=== PATIENT | female | born 1940 | race Caucasian/White ===

== ENCOUNTER 2016-06-15 15:59 | Inpatient (IN) | payer OTHER, MEDICARE ==
[2016-06-15] MEDS ORDERED: Sodium Chloride 0.9% 1,000 ML PRIMARY IV ONE (16:17)
[2016-06-15] MEDS ORDERED: NORMAL SALINE 10 ML SYRINGE FLUSH IVP PRN ×2 (16:17→17:51)
--- NOTE | 2016-06-15 16:29 | EKG ---
[address] [address] Measurements Intervals [place] Rate: 90 P: 82 MN: 130 QRS: 74 QRSD: 79 T: 87 QT: 336 QTc: 384 Interpretive Statements SINUS RHYTHM MINIMAL ST DEPRESSION Compared to ECG 12/31/2015 13:21:19 ST (T wave) deviation now present Sinus tachycardia no longer present Myocardial infarct finding no longer present Electronically Signed On 06-15-16 17:12:50 MDT by Patrick Dao [email or web address]
--- NOTE | 2016-06-15 17:29 | PDOC ---
General Adult HPI - General Chief Complaint: General Medical Stated Complaint: SENT FOR ADMIT EVAL/ LOW HEMAGLOBIN Date Seen by Provider: 06/15/16 Time Seen by Provider: 16:05 Source: POSITIVE: Patient Exam Limitations: POSITIVE: No limitations Nurse's Notes Reviewed & Considered: Yes - History of Present Illness Initial Comment: The patient is a 76-year-old female who is evaluated with low hemoglobin. She was sent to the hospital from Dr. Wharton's office. She states that she has a history of hemorrhoids that bleed intermittently. She is currently on Plavix secondary to stent placement in December of last year. She states that she was on antibiotics recently and developed some constipation. She states that on Wednesday of last week she developed some rectal bleeding. She states that she was having bright red blood in the toilet with BMs as well as some blood dripping in the toilet. She was also passing some fairly large clots at times. She states that she continued to bleed over the weekend. Today the bleeding seems to have stopped however she was feeling very short of breath with activity and lightheaded. She subsequently was evaluated at Dr. Wharton's office. He had ordered blood work as well as a chest x-ray. Her hemoglobin was found to be 7 and she was advised to come here for evaluation. She denies any nausea or vomiting. She does have a large abdominal wall hernia which she states causes pain fairly chronically. She was having increased pain associated with the constipation and this seems to be improved now that her bowels have been moving better. She does report increased shortness of breath today especially with activity. She also has had some chest pain off and on. She denies any current pain. She has not had fevers or chills, urinary symptoms or any other associated complaints. She does not remember ever having a blood transfusion previously. She did at one point see Dr. Loaiza for her hemorrhoids after a previous episode of rectal bleeding. Have you received a tetanus shot in the past 10 years?: Unknown - Patient Home Medications Home Medications: Home Medications Albuterol Neb Soln 0.021% 1 unit INH Q4H 02/04/12 Amlodipine Besylate 1 tab PO DAILY tab 01/15/15 Budesonide/Formoterol Fumarate [Symbicort] 2 puff INH BID inh 01/15/15 Levothyroxine Sodium 1 tab PO DAILY tab 01/15/15 Aspirin 81 mg PO DAILY tab 01/10/16 Atorvastatin Calcium 1 tab PO DAILY tab 01/10/16 Clopidogrel Bisulfate [Plavix] 1 tab PO DAILY tab 01/10/16 Sennosides [Senna] 8.6 mg PO QPM PRN tab 01/10/16 Metoprolol Succinate 1 tab PO QD tab 02/06/16 Ipratropium Brom Neb Soln [Atrovent Neb Soln] 0.2 mg INH Q6HR 06/15/16 - Patient Allergies Allergies/Adverse Reactions: Allergies Allergy/AdvReac Type Severity Reaction Status Date / Time Penicillins Allergy Severe SWELLING Verified 06/15/16 16:10 PAIN PILLS AdvReac Severe DYSPHORIA Uncoded 06/15/16 16:10 Past Medical History - heen HEENT History: Denies History Cardiovascular History: Hypertension, Previous SC Respiratory History: Asthma, COPD Gastrointestinal History: Denies History Genitourinary History: Denies History Endocrine History: Hypothyroidism Additional Endocrine History: S/P RADIATION TO THYROID Musculoskeletal History: Joint Pain Prosthesis or Implant: No Additional Musculoskeletal History: RIGHT HIP PAIN Neurological History: Denies History Blood Disorders: Denies History Psychiatric History: Denies History History of Sexually Transmitted Diseases: No Obstetrical History: Denies History Cancer History: Breast In Past Year Been Physically Harmed or Verbally Threatened: No History of MDRO: No History of Other Communicable Diseases: No Tobacco Use: Former Smoker Alcohol Use: Rarely Substance Use Type: None Previous Surgical History: Yes Type / Date of Surgery: MASTECTOMY, GALLBLADDER, ABDOMINAL HERNIA REPAIR X 3 Anesthesia Reactions: No Malignant Hyperthermia: No Significant Family History: No pertinent family hx Past Medical History Reviewed: Reviewed - No Changes ROS - Limitations ROS Limitations: No Limitations Constitution: DENIES: Chills, Fever Cardiovascular: REPORTS: Chest Pain (Off-and-on today). DENIES: Edema Respiratory: REPORTS: Shortness Of Breath (With activity especially today) Neurological: REPORTS: Denies Neuro Symptoms Gastrointestinal: REPORTS: Abdominal Pain (Some chronic lower abdominal pain and large abdominal wall hernia), Bloody Stools. DENIES: Nausea, Vomitting, Black Stools Musculoskeletal: REPORTS: Denies MS Symptoms Genitourinary: REPORTS: Denies Symptoms Eyes: REPORTS: Denies Symptoms ENT: REPORTS: Denies Symptoms Skin: DENIES: Rash General Adult Exam - General Appearance General Appearance: POSITIVE: Alert, Cooperative, No Acute Distress - HEENT HEENT: POSITIVE: Head Inspection Nml, Eyes Inspection Nml, Ears Inspection Nml, Nose Inspection Nml, Pharynx Inspect. Nml - Neck Neck: POSITIVE: Normal Inspection. NEGATIVE: Lymphadenopathy - Respiratory Respiratory: POSITIVE: No Respiratory Distress, Breath Sounds Normal - Cardiovascular Cardiovascular: POSITIVE: Regular Rate & Rhythm, No Murmur Peripheral Pulses: Dorsalis-pedis (R): 2+, Dorsalis-pedis (L): 2+ - Abdomen Abdomen: Soft: (All Quadrants), No Guarding: (All Quadrants), No Rebound: (All Quadrants) Additional Abdominal Details: She does have a very large abdominal wall hernia, some mild generalized abdominal tenderness - Rectal Rectal: POSITIVE: Other (Rectal exam reveals multiple external hemorrhoids, there is one hemorrhoid that may be an internal hemorrhoid that is protruding which appears to be excoriated, there is no active bleeding, the stool is brown however is heme positive) - Skin Skin: POSITIVE: Normal Color, No Rash - Extremities Extremity: Normal ROM: (All Extremities), Normal Inspection: (All Extremities) - Neurological / Psychological Neurological: POSITIVE: Other (No focal neurologic deficit) General Adult Progress - Results Reviewed by me Xrays/CTs/US Reviewed by me: Yes Radiology Findings: Chest x-ray PA and lateral is reviewed from earlier today, normal heart size and lung guerrero Lab Results Reviewed: Yes Lab Results:: Laboratory Results 06/15/16 Range/Units 16:39 PT 10.3 (9.7-11.4) secs INR 1.00 (0.00-5.90) N/A APTT 23.4 (22.6-31.3) SECS Troponin I < 0.012 (< 0.040) ng/mL EKG Interpreted/Reviewed By Me:: Yes EKG Interpretation:: POSITIVE: Normal Sinus Rhythm, Normal Rate, Normal Intervals, Normal QRS, Normal ST/T, Other (No acute ST segment or T-wave changes ) - Patient's Progress MDM / ED Course: Lab work from earlier this morning was reviewed. Her hemoglobin is 7 and she does not have any history of anemia when old labs are reviewed. Because of her complaints of intermittent chest pain and EKG was done and found to be normal. Her troponin is also normal. She was typed and crossed for 2 units of packed red blood cells as she is symptomatic with her current anemia. I did discuss the patient with Dr. Roman who is on-call for general surgery as well as Dr. Wright. The current plan is for admission and blood transfusion. These findings and recommendations were discussed with the patient and she is in agreement with this plan. - Consult Counseled: POSITIVE: Patient, RE: Lab Results, RE: DX, RE: Need for F/U Patient Care Time - Estimated PCT Patient Care Time (In Minutes): 25 Vital Signs - Recent Vital Signs Vital Signs: Vital Signs (Last 8 hours) Temp Pulse Resp BP Pulse Ox 06/15/16 16:00 98.8 F 115 H 22 134/76 95 - VS Reviewed Vital Signs Reviewed: Yes Discharge Clinical Impression: Lower gastrointestinal hemorrhage, Hemorrhoids, Secondary anemia Discharge Disposition: Admit to Inpatient Condition: Fair Date Decision to Admit to Inpatient: 06/15/16 Time Decision to Admit to Inpatient: 17:00
[2016-06-15] MEDS ORDERED: predniSONE Tab 20 MG TAB PO ONE (17:51)
[2016-06-15] MEDS ORDERED: ACETAMINOPHEN 325 MG TABLET PO ONE (17:51)
[2016-06-15] MEDS ORDERED: Sodium Chloride 0.9% 500 ML PRIMARY IV ONE (17:51)
[2016-06-15] MEDS ORDERED: ONDANSETRON 4 MG/2 ML VIAL IVP PRN (17:51)
[2016-06-15] MEDS ORDERED: diphenhydrAMINE 25 MG CAPSULE PO ONE (17:51)
[2016-06-15] MEDS ORDERED: LIDOCAINE W/ SODIUM BICARB 0.5 ML SYR SUBD PRN (17:51)
--- NOTE | 2016-06-15 18:43 | PDOC ---
History and Physical - History of Present Illness Date and Time of Service: 06/15/2016, 1839 Chief Complaint: Shortness breath History of Present Illness: This is a very pleasant 76-year-old female with assorted history of coronary artery disease with stent placed December 2015, hypothyroidism, and tremor, hemorrhoids, and problems with a graft that was infected in the past with an abdominal surgery leading to abdominal wall hernia that is complex, bladder cancer treated with cystoscopy and scraping, and history of breast cancer with mastectomy in the past. She comes in today stating that she developed shortness breath today and states that her story really starts back to when she had a recent bladder scope in the office to monitor for bladder cancer. She was placed on an antibiotic which generally causes her constipation. After developing constipation she started having bright red blood clots pass from the rectum and attributed it to an internal hemorrhoid. She states that she had a rectal exam in the emergency room was told that she had an internal hemorrhoid. She apparently has seen Dr. Loaiza for this in the past but at the time she was on Plavix having had a recent stent placed in December 2015 and was told that she should delay any colonoscopy or EGD. The patient was seen by her primary care provider, Dr. Mcgarry, today with these complaints, and despite trying inhalers the shortness breath persisted. Blood counts were done and the patient was presyncopal as well. Blood counts revealed a hemoglobin of 7. She had some chest discomfort that was relieved with oxygen therapy. She states she is normally on oxygen at night but does not use it during the day. The patient could not tell if her shortness of breath or chest tightness were from her COPD or her heart, but again symptoms were relieved with oxygen today. Troponin was negative. The patient has never had endoscopy done before. She is not on a proton pump inhibitor. Past Medical History Medical History: 1. Coronary artery disease status post stent in December 2015. 2. Hypertension. 3. Hypothyroidism, post-iodine therapy for an overactive thyroid at the time. 4. Breast cancer status post mastectomy. 5. 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 6. Head tremor. 7. Internal hemorrhoids. 8. Hypercholesteremia Surgical History: 1. Stent in December 2015. 2. Appendectomy and cholecystectomy. 3. Hernia operation and then subsequently the patient developed a mesh infection and now has had 3-4 surgeries, with a large abdominal wall surgical hernia. 4. Left mastectomy due to breast cancer. 5. Transurethral resection of latter cancer, probably transitional cell although I don't have any pathology reports of that. Pertinent Family History: Significant for COPD. Past Social History: History of smoking but no longer does. Has 4 biologic sons and 2 stepchildren, and one of her sons had a traumatic brain injury and lives with her. She is . Retired. Rarely drinks alcohol Tobacco Use: Former Smoker Substance Use Type: None Alcohol Use: Rarely Medication / Allergies Home Medications: Home Medications Medication Instructions Recorded Confirmed Type Albuterol Neb Soln 0.021% 1 unit INH Q4H 02/04/12 12/31/15 History Amlodipine Besylate 1 tab PO DAILY tab 01/15/15 12/31/15 History Budesonide/Formoterol Fumarate 2 puff INH BID inh 01/15/15 12/31/15 History [Symbicort] Levothyroxine Sodium 1 tab PO DAILY tab 01/15/15 12/31/15 History Aspirin 81 mg PO DAILY tab 01/10/16 History Atorvastatin Calcium 1 tab PO DAILY tab 01/10/16 History Clopidogrel Bisulfate [Plavix] 1 tab PO DAILY tab 01/10/16 History Sennosides [Senna] 8.6 mg PO QPM PRN tab 01/10/16 History Metoprolol Succinate 1 tab PO QD tab 02/06/16 History Ipratropium Brom Neb Soln 0.2 mg INH Q6HR 06/15/16 06/15/16 History [Atrovent Neb Soln] Allergies/Adverse Reactions: Allergies Allergy/AdvReac Type Severity Reaction Status Date / Time Penicillins Allergy Severe SWELLING Verified 06/15/16 16:10 PAIN PILLS AdvReac Severe DYSPHORIA Uncoded 06/15/16 16:10 clorox AdvReac SWELLING Uncoded 06/15/16 18:37 Review of Systems - Review of Systems All Systems: Reviewed & No Additional Complaints Except as Stated (I did a 12 point review of systems and it was as per the history of present illness with a noted exceptions below.) - Gastrointestinal Gastrointestinal / Abdominal: REPORTS: Constipation (With antibiotics), Abdominal Pain (Gets cramping or stretching abdominal pains and bad gas pain at times.), See HPI - Gynecological Gynecological: REPORTS: Other (Had tubal ligation) : 4 Para: 4 - Musculoskeletal Musculoskeletal: REPORTS: Joint Pain - Shoulders (Left shoulder, chronic.) Exam - Vitals Vital Signs: Vital Signs Temperature 98.2 F Temperature Source Temporal Artery Scan Pulse Rate 83 Respiratory Rate 22 Blood Pressure 117/73 Pulse Ox 95 Height 5 ft Weight 126 lb - General General Appearance: POSITIVE: No Acute Distress, Cooperative - Head Head Exam: POSITIVE: Normal Inspection, Normocephalic, Atraumatic - Eye Eye Exam: POSITIVE: No Scleral Icterus - ENT ENT Exam: POSITIVE: Mucous Membranes Moist - Neck Neck Exam: POSITIVE: Normal Inspection, No Tenderness, No Thyromegaly - Respiratory Respiratory Exam: POSITIVE: Clear to Auscultation - Bilaterally, Breathing Non Labored, Normal to Percussion and Palpation - Cardiovascular Cardiovascular Exam: POSITIVE: RRR, No Murmur, No Clicks, No Gallops, No Rubs, No JVD - GI/Abdominal GI/Abdominal Exam: POSITIVE: Normal Bowel Sounds, Non Tender, Non Distended, Soft - Rectal Rectal Exam: POSITIVE: Deferred (Was done in the emergency room. She was told she had an internal hemorrhoid.) - External Exam: POSITIVE: Deferred Exam: POSITIVE: Deferred - Extremities Extremities Exam: POSITIVE: No Clubbing Present, No Edema Present, No Cyanosis Present - Back Back Exam: POSITIVE: Normal Inspection, No CVA Tenderness - Neurological Neurological Exam: POSITIVE: Alert, Oriented x 3, No Facial Droop, Speech Intact / Clear, Moves All Extremities Equally - Psychiatric Psychiatric Exam: POSITIVE: Normal Affect, Normal Mood - Integumentary Integumentary Exam: POSITIVE: Normal Color, Warm, Dry, Intact Results - Labs Labs - Last 24 Hours: Hemoglobin was noted to be 7, I did review the labs from outpatient side. Laboratory Results 06/15/16 Range/Units 16:39 PT 10.3 (9.7-11.4) secs INR 1.00 (0.00-5.90) N/A APTT 23.4 (22.6-31.3) SECS Troponin I < 0.012 (< 0.040) ng/mL NT-Pro-B Natriuret Pep 251 H (0-125) PG/ML Electrolytes were normal. Normal creatinine. - EKG Data -: EKG Interpreted by Me Rate: Normal EKG Shows Normal: Sinus Rhythm - Imaging Status: Image Reviewed by Me (Chest x-ray noted and my view of the images showed COPD but no infiltrates or pneumonia.) Assessment and Plan - Patient Problems (1) GI bleed Current Visit: Yes Status: Acute Qualifiers: GI bleed type/associated pathology: anorectal hemorrhage Qualified Description: Gastrointestinal hemorrhage associated with anorectal source Qualifier Code(s): (K62.5) Hemorrhage of anus and rectum (2) Coronary artery disease Current Visit: Yes Status: Acute Qualifiers: Coronary Disease-Associated Artery/Lesion type: [place] artery [place] vs. transplanted heart: [place] heart Associated angina: without angina Qualified Description: Coronary artery disease involving [place] coronary artery of [place] heart without angina pectoris Qualifier Code(s): (I25.10) Atherosclerotic heart disease of [place] coronary artery without angina pectoris (3) COPD (chronic obstructive pulmonary disease) Current Visit: No Status: Acute Qualifiers: COPD type: emphysema Emphysema type: panlobular Qualified Description: Panlobular emphysema Qualifier Code(s): (J43.1) Panlobular emphysema (4) Hypertension Current Visit: Yes Status: Acute Qualifiers: Hypertension type: essential hypertension Qualified Description: Essential hypertension Qualifier Code(s): (I10) Essential (primary) hypertension (5) Hypercholesterolemia Current Visit: Yes Status: Acute (6) Hypothyroidism Current Visit: Yes Status: Acute Qualifiers: Hypothyroidism type: due to medication Qualified Description: Hypothyroidism due to medication Qualifier Code(s): (E03.2) 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 Get a GI consult. Probably the patient needs a sigmoidoscopy or colonoscopy, and potential planning to look at what we can do for these hemorrhoids. Medications for constipation. May benefit from an EGD, and I'll run Protonix as a drip overnight, although I doubt based on the history that this is ulcer is in the differential. Hold Plavix and aspirin for now. The patient's risk of in-stent restenosis is about 1% or less at this point given the length of therapy she's had on her Plavix. She has significant heartburn on her review of systems and she may benefit from a proton pump inhibitor. Although there is potential for interference, this patient has been symptomatically miserable since the stent was placed in terms of her heartburn, reflux disease, and sometimes feels like things actually get stuck in her neck which could indicate stricture or dysphagia. Patient is full code, discussed with her. Blood and packed red blood cell transfusions, I've written for 3 units total. I discussed the above plan with the patient and she agreed. Nothing by mouth postmidnight.
[2016-06-15] MEDS ORDERED: ALBUTEROL SULFATE 0.63 MG/3 ML NEB SCH (19:00)
[2016-06-15] MEDS ORDERED: Sodium Chloride 0.9% 1,000 ML IV ONE (19:11)
[2016-06-15] MEDS ORDERED: traMADol 50 MG TABLET PO PRN (19:12)
[2016-06-15] MEDS ORDERED: IPRATROPIUM BROMIDE 0.5 mg/2.5 ML NEB SCH (19:15)
[2016-06-15] MEDS: Sodium Chloride 0.9% 1,000 ML PRIMARY IV SCH (19:17)
[2016-06-15] MEDS ORDERED: PANTOPRAZOLE IV 40 MG VIAL ONE (19:33)
[2016-06-15] MEDS: FORMOTEROL INH SCH (20:58)
[2016-06-15] MEDS: BUDESONIDE INH SCH (20:58)
[2016-06-15] MEDS: IPRATROPIUM/ALBUTEROL SULFATE 3 ML NEB NEB SCH (20:58)
[2016-06-15] MEDS ORDERED: ATORVASTATIN 40 MG TABLET PO SCH (21:00)
[2016-06-15] MEDS: DOCUSATE 100 MG CAPSULE PO SCH (21:10)
--- NOTE | 2016-06-15 23:04 | DI ---
HISTORY: GI bleed. COMPARISON: None. TECHNIQUE: An IV contrast enhanced CT examination of the abdomen and pelvis was performed with image s presented in the axial, coronal and sagittal plane. FINDINGS: LUNG BASES: There is a true lung nodule versus nodular scarring in the lingula which is partially im aged. INFERIOR MEDIASTINUM: Unremarkable. ABDOMEN: The patient is status post cholecystectomy. The liver, pancreas, spleen and kidneys are wit hin normal limits. There is no ureterolithiasis or hydronephrosis. 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 There is no retroperitoneal lymphade nopathy. Atherosclerotic disease is seen within the abdominal vasculature. There is a very large midline anterior lower abdominal wall hernia containing a long segment of small bowel and transverse colon. There are no dilated loops of small bowel proximal to this region sugges t obstruction. The hernia measures proximal 19.0 x 6.9 x 15.9 cm. There is diverticulosis of the colo n without findings to suggest diverticulitis. PELVIS: Within normal limits for age. MUSCULOSKELETAL/SOFT TISSUE: Again, there is a large anterior abdominal hernia containing a long seg ment of small and large bowel. IMPRESSION: 1. Diverticulosis of the colon without findings to suggest diverticulitis. 2. Large anterior abdominal wall hernia containing a long segment of small bowel and transverse colon. 3. There is nodular scarring versus a true lung nodule within the lingula. Comparison to prior examin ations is recommended versus follow-up chest CT on a non-emergent basis. NOTIFICATION: The above findings were phoned to Mireille Rdz in the ER Department on 06/16/2016 at 1: 09am EST.
[2016-06-15] MEDS ORDERED: cefTRIAXone Inj 2 GM in Sodium Chloride 0.9% 100 ML IV SCH (23:30)
[2016-06-15] MEDS ORDERED: metroNIDAZOLE 500mg (Premix) 500 MG in Premix 1 BAG IV SCH (23:30)
[2016-06-16] MEDS: IPRATROPIUM/ALBUTEROL SULFATE 3 ML NEB NEB SCH ×4 (00:06→19:09)
[2016-06-16] MEDS ORDERED: IPRATROPIUM/ALBUTEROL SULFATE 3 ML NEB NEB SCH (01:00)
[2016-06-16] MEDS: Sodium Chloride 0.9% 1,000 ML PRIMARY IV SCH ×2 (03:40→08:48)
[2016-06-16] MEDS ORDERED: Sodium Chloride 0.9% 1,000 ML IV ONE ×2 (04:10→05:37)
[2016-06-16 04:40] LABS: MEAN CORPUSCULAR HEMOGLOBIN 19.5 PG (27-31); MEAN CORPUSCULAR HGB CONC 30.3 g/dL (33-37); MEAN CORPUSCULAR VOLUME 64.5 FL (81-99); MEAN PLATELET VOLUME 8.8 FL (7.4-12.2); RED BLOOD COUNT 3.07 10^6/uL (4.20-5.40)
[2016-06-16 04:42] LABS: HEMATOCRIT 19.8 % (37.0-47.0)
[2016-06-16 05:27] LABS: BUN/CREATININE RATIO 15.71 (6-20)
[2016-06-16] MEDS ORDERED: LEVOTHYROXINE 100 MCG TABLET PO SCH (06:30)
[2016-06-16] MEDS: FORMOTEROL INH SCH (06:51)
[2016-06-16] MEDS: BUDESONIDE INH SCH ×2 (06:51→19:12)
[2016-06-16] MEDS ORDERED: Sodium Chloride 0.9% 1,000 ML PRIMARY IV ONE (07:43)
--- NOTE | 2016-06-16 08:52 | CONSULT ---
Consult Note - Consult Consult Date: 06/16/16 Reason for Consult: PreOp Consulation : General Surgery Requesting Physician: Dr. Olea Primary Care Provider: GINA [place]PELAND - History of Present Illness History of Present Illness: This is a 76-year-old female who presents with a gastrointestinal hemorrhage. She states that she had a bladder infection that was placed on antibiotics which led her to get constipated. She's been passing blood for 2-3 days. She would see her primary care doctor because of shortness of breath and apparently hemoglobin was 7. Therefore she was sent to the emergency department and got admitted to the hospital. Unfortunately she has 4 different type of antibodies therefore is taken a while to find appropriate blood. Patient currently is slightly tachycardic at 108, But her blood pressure remained stable. Patient December had a myocardial infarction which led to have a stent placed. Patient currently is taking Plavix. Patient also had bladder cancer and had a bladder procedure to have that removed. Patient still be she had one bloody bowel movement today Review of Systems - Review of Systems -: Patient's tells me that she just can't get comfortable. She's having some shoulder discomfort which sounds like it is not unusual for her. Patient states that she gets abdominal pain she leans over because of her incisional hernia. Past Medical History Medical History: 1. Coronary artery disease status post stent in December 2015. 2. Hypertension. 3. Hypothyroidism, post-iodine therapy for an overactive thyroid at the time. 4. Breast cancer status post mastectomy. 5. 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 6. Head tremor. 7. Internal hemorrhoids. 8. Hypercholesteremia Surgical History: 1. Stent in December 2015. 2. Appendectomy and cholecystectomy. 3. Hernia operation and then subsequently the patient developed a mesh infection and now has had 3-4 surgeries, with a large abdominal wall surgical hernia. 4. Left mastectomy due to breast cancer. 5. Transurethral resection of latter cancer, probably transitional cell although I don't have any pathology reports of that. Pertinent Family History: Significant for COPD. Past Social History: History of smoking but no longer does. Has 4 biologic sons and 2 stepchildren, and one of her sons had a traumatic brain injury and lives with her. She is . Retired. Rarely drinks alcohol Tobacco Use: Former Smoker Substance Use Type: None Alcohol Use: Rarely Medication / Allergies Home Medications: Home Medications Medication Instructions Recorded Confirmed Type Albuterol Neb Soln 0.021% 1 unit INH Q4H 02/04/12 06/15/16 History Amlodipine Besylate 1 tab PO DAILY tab 01/15/15 06/15/16 History Budesonide/Formoterol Fumarate 2 puff INH BID inh 01/15/15 06/15/16 History [Symbicort] Levothyroxine Sodium 1 tab PO DAILY tab 01/15/15 06/15/16 History Aspirin 81 mg PO DAILY tab 01/10/16 06/15/16 History Atorvastatin Calcium 1 tab PO DAILY tab 01/10/16 06/15/16 History Clopidogrel Bisulfate [Plavix] 1 tab PO DAILY tab 01/10/16 06/15/16 History Metoprolol Succinate 1 tab PO QD tab 02/06/16 06/15/16 History Ipratropium Brom Neb Soln 0.2 mg INH Q6HR 06/15/16 06/15/16 History [Atrovent Neb Soln] Allergies/Adverse Reactions: Allergies Allergy/AdvReac Type Severity Reaction Status Date / Time Penicillins Allergy Severe SWELLING Verified 06/15/16 16:10 PAIN PILLS AdvReac Severe DYSPHORIA Uncoded 06/15/16 16:10 clorox AdvReac SWELLING Uncoded 06/15/16 18:37 Exam - Vitals Vital Signs: Vital Signs Temperature 97.5 F Temperature Source Temporal Artery Scan Pulse Rate [Telemetry] 105 Pulse Rate [Apical] 90 Pulse Rate [Pulse Oximeter 80 Right] Pulse Rate 92 Respiratory Rate 25 Blood Pressure [Right Calf] 149/85 Blood Pressure [Right Arm] 96/46 Blood Pressure 117/73 Pulse Ox 99 Oxygen Flow Rate 2 Oxygen Delivery Method Nasal Cannula Height 5 ft Weight 58.786 kg - General General Appearance: POSITIVE: No Acute Distress, Cooperative - Eye Eye Exam: POSITIVE: PERRL, EOMI - GI/Abdominal GI/Abdominal Exam: POSITIVE: Non Tender, Non Distended, Soft Additional GI/Abdominal Exam Details: Incisional hernia Results - Labs CBC and BMP: 06/16/16 04:07 06/16/16 04:07 Labs - Last 24 Hours: Laboratory Results 06/16/16 Range/Units 04:07 WBC 9.17 (4.8-10.8) 10^3/uL RBC 3.07 L (4.20-5.40) 10^6/uL Hgb 6.0 L* (12.0-16.0) g/dL Hct 19.8 L* (37.0-47.0) % MCV 64.5 L (81-99) FL MCH 19.5 L (27-31) PG MCHC 30.3 L (33-37) g/dL RDW Std Deviation 42.4 (39-50) fL RDW Coeff of Lee 18.7 H (11.5-14.5) % Plt Count 370 H (140-350) 10*3/uL MPV 8.8 (7.4-12.2) FL Sodium 135 (135-145) meq/L Potassium 4.5 (3.8-5.2) meq/L Chloride 101 (98-112) meq/L Carbon Dioxide 20 L (23-33) meq/L Anion Gap 14 (5-20) BUN 11 (7-22) mg/dL Creatinine 0.7 (0.50-1.20) mg/dL Estimated GFR (>60 ml/min/1.73m(2)) BUN/Creatinine Ratio 15.71 (6-20) Glucose 117 H (78-110) mg/dL Calculated Osmolality 279.0 (267-292) mOsm/kg Calcium 9.0 (8.7-10.7) mg/dL Assessment and Plan - Patient Problems (1) GI bleed Current Visit: Yes Status: Acute Qualifiers: GI bleed type/associated pathology: anorectal hemorrhage Qualified Description: Gastrointestinal hemorrhage associated with anorectal source Qualifier Code(s): (K62.5) Hemorrhage of anus and rectum - Assessment / Plan Additional Assessment/Plan Details: Patient is acutely gas intestinal hemorrhage. Need to wait for the blood transfusion. Patient does need endoscopy to find the source of blood. Given the patient's age and situation most likely this is diverticular bleed also high possibility AV malformation. I doubt that the patient's hemorrhoids are actually causing her to be anemic. I discussed with the patient about doing a flexible sigmoidoscopy to look at the sigmoid colon and descending colon. Patient this point is refusing to have the endoscopy until after the blood transfusion.
[2016-06-16] MEDS ORDERED: Pantoprazole Inj 40 MG in Normal Saline Flush 10 ML IVP SCH (09:00)
[2016-06-16] MEDS ORDERED: SERTRALINE HCL PO SCH (09:00)
[2016-06-16] MEDS ORDERED: ONDANSETRON 4 MG/2 ML VIAL IVP PRN (09:39)
[2016-06-16] MEDS ORDERED: Sodium Chloride 0.9% 500 ML PRIMARY IV ONE ×3 (09:39→12:00)
[2016-06-16] MEDS ORDERED: NORMAL SALINE 10 ML SYRINGE FLUSH IVP PRN (09:39)
[2016-06-16] MEDS ORDERED: LIDOCAINE W/ SODIUM BICARB 0.5 ML SYR SUBD PRN (09:39)
[2016-06-16] MEDS: DOCUSATE 100 MG CAPSULE PO SCH (09:56)
[2016-06-16] MEDS ORDERED: predniSONE Tab 20 MG TAB PO ONE (12:00)
[2016-06-16] MEDS ORDERED: diphenhydrAMINE 25 MG CAPSULE PO ONE (12:00)
--- NOTE | 2016-06-16 15:26 | PDOC(PROG) ---
Date and Time of Service: 06/16/2016, 1525 Interval History: Still states that she has a stretching sensation in her abdomen. Had 2 bowel movements and both of them are bloody. No chest pain and no shortness breath. Still feels presyncopal and lightheaded. Blood is on order but there was an S antibody, so we had to get it from [place], [place]. The blood literally just got here and is been cleared for use within the last hour and a half so she is just getting her first unit now. Objective : Data - Labs CBC and BMP: 06/16/16 04:07 06/16/16 04:07 Labs - Last 24 Hours: Laboratory Results 06/16/16 Range/Units 04:07 WBC 9.17 (4.8-10.8) 10^3/uL RBC 3.07 L (4.20-5.40) 10^6/uL Hgb 6.0 L* (12.0-16.0) g/dL Hct 19.8 L* (37.0-47.0) % MCV 64.5 L (81-99) FL MCH 19.5 L (27-31) PG MCHC 30.3 L (33-37) g/dL RDW Std Deviation 42.4 (39-50) fL RDW Coeff of Lee 18.7 H (11.5-14.5) % Plt Count 370 H (140-350) 10*3/uL MPV 8.8 (7.4-12.2) FL Sodium 135 (135-145) meq/L Potassium 4.5 (3.8-5.2) meq/L Chloride 101 (98-112) meq/L Carbon Dioxide 20 L (23-33) meq/L Anion Gap 14 (5-20) BUN 11 (7-22) mg/dL Creatinine 0.7 (0.50-1.20) mg/dL Estimated GFR (>60 ml/min/1.73m(2)) BUN/Creatinine Ratio 15.71 (6-20) Glucose 117 H (78-110) mg/dL Calculated Osmolality 279.0 (267-292) mOsm/kg Calcium 9.0 (8.7-10.7) mg/dL Objective : Exam - General General Appearance: No Acute Distress, Cooperative Additional General Exam Details: Vital Signs - Last Taken Temperature 98.1 F 06/16/16 15:15 Pulse Rate 98 06/16/16 15:15 Respiratory Rate 32 H 06/16/16 15:15 Blood Pressure 111/66 06/16/16 15:15 Pulse Ox 99 06/16/16 15:15 - Eye Eye Exam: No Scleral Icterus - ENT ENT Exam: Mucous Membranes Dry - Respiratory Respiratory Exam: Breathing Non Labored, Decreased Breath Sounds - Cardiovascular Cardiovascular Exam: RRR, No Murmur, No Clicks, No Gallops, No Rubs, PMI Non- Displaced, No JVD - GI/Abdominal GI/Abdominal Exam: Normal Bowel Sounds, Non Tender, Non Distended, Soft, Hernia - Extremities Extremities Exam: No Clubbing Present, No Edema Present, No Cyanosis Present - Neurological Neurological Exam: Alert, Oriented x 3, No Facial Droop, Speech Intact / Clear, Moves All Extremities Equally Assessment and Plan - Patient Problems (1) GI bleed Current Visit: Yes Status: Acute Qualifiers: GI bleed type/associated pathology: anorectal hemorrhage Qualified Description: Gastrointestinal hemorrhage associated with anorectal source Qualifier Code(s): (K62.5) Hemorrhage of anus and rectum (2) Coronary artery disease Current Visit: Yes Status: Acute Qualifiers: Coronary Disease-Associated Artery/Lesion type: [place] artery [place] vs. transplanted heart: [place] heart Associated angina: without angina Qualified Description: Coronary artery disease involving [place] coronary artery of [place] heart without angina pectoris Qualifier Code(s): (I25.10) Atherosclerotic heart disease of [place] coronary artery without angina pectoris (3) COPD (chronic obstructive pulmonary disease) Current Visit: No Status: Acute Qualifiers: COPD type: emphysema Emphysema type: panlobular Qualified Description: Panlobular emphysema Qualifier Code(s): (J43.1) Panlobular emphysema (4) Hypertension Current Visit: Yes Status: Acute Qualifiers: Hypertension type: essential hypertension Qualified Description: Essential hypertension Qualifier Code(s): (I10) Essential (primary) hypertension (5) Hypercholesterolemia Current Visit: Yes Status: Acute (6) Hypothyroidism Current Visit: Yes Status: Acute Qualifiers: Hypothyroidism type: due to medication Qualified Description: Hypothyroidism due to medication Qualifier Code(s): (E03.2) Hypothyroidism due to medicaments and other exogenous substances (7) Diverticulosis Current Visit: Yes Status: Acute Qualifiers: Diverticulosis site: diverticulosis of large intestine Diverticulosis bleeding: diverticulosis with bleeding Qualified Description: Diverticulosis of large intestine with hemorrhage Qualifier Code(s): ( K57.31) Diverticulosis of large intestine without perforation or abscess with bleeding (8) Anemia due to acute blood loss Current Visit: Yes Status: Acute - Assessment / Plan Additional Assessment/Plan Details: Overall, the patient remains in a precarious situation. It is been tough to get blood, due to this antibody, and now that we have 5 units here, I plan to transfuse all of them based on where her hemoglobin has dropped. Is now at 6. She still may be having active bleeding. I spoke with surgery, and if the patient is continuing to have active bleeding, we may consider transferring the patient to a site where they are capable of doing coiling and interventional radiology and surgery if necessary. If the scan is negative and the patient appears to have stopped bleeding, we will transfuse her through this, and may consider a limited flexible sigmoidoscopy might do flex sigmoidoscopy to examine further. Eventually patient will need to be off of her Plavix and aspirin for a week to proceed with an EGD and full colonoscopy. Continue to hold Plavix and aspirin at this time. In this situation bleeding and circulation are taking precedence over stent, and the patient is aware that she has a 1% chance of in-stent restenosis. Continue telemetry monitoring. Continue breathing therapies for COPD. Total critical care time, 35 minutes, no overlap.
--- NOTE | 2016-06-16 16:06 | DI ---
NM GASTROINTESTINAL BLOOD LOSS,06/16/2016 9:39 AM: Clinical History: GI bleed. Suspect diverticular disease. Previous Exam: None at this facility. Radiopharmaceutical: 10.0 mCi of technetium 99m sulfur colloid Findings: Images are obtained as part of a bleeding study, and demonstrates no definite evidence of accumulatio n of radiotracer within the colon or small bowel. Skeletal structures are unremarkable. Impression: No detectable hemorrhage of the gastrointestinal tract.
[2016-06-16 17:16] LABS: HEMATOCRIT 24.1 % (37.0-47.0); HEMOGLOBIN 7.4 g/dL (12.0-16.0); MEAN CORPUSCULAR HEMOGLOBIN 21.9 PG (27-31); MEAN CORPUSCULAR HGB CONC 30.7 g/dL (33-37); MEAN CORPUSCULAR VOLUME 71.3 FL (81-99); MEAN PLATELET VOLUME 8.3 FL (7.4-12.2); RED BLOOD COUNT 3.38 10^6/uL (4.20-5.40)
[2016-06-16 17:25] LABS: CALCIUM 7.8 mg/dL (8.7-10.7)
[2016-06-16] MEDS: FORMOTEROL FUMARATE INH SCH (19:12)
[2016-06-16] MEDS ORDERED: Potassium Chloride 20 mEq 20 MEQ in Premix 1 BAG IV ONE (19:38)
[2016-06-16] MEDS ORDERED: FUROSEMIDE 10 MG/1 ML - 2 ML VIAL IVP ONE (19:57)
[2016-06-16] MEDS: ATORVASTATIN 40 MG TABLET PO SCH (20:45)
[2016-06-16] MEDS ORDERED: DOCUSATE 100 MG CAPSULE PO SCH (21:00)
[2016-06-16 22:13] LABS: HEMATOCRIT 29.3 % (37.0-47.0); MEAN CORPUSCULAR HEMOGLOBIN 25.2 PG (27-31); MEAN CORPUSCULAR HGB CONC 34.1 g/dL (33-37); MEAN CORPUSCULAR VOLUME 73.8 FL (81-99); MEAN PLATELET VOLUME 8.2 FL (7.4-12.2); RED BLOOD COUNT 3.97 10^6/uL (4.20-5.40)
[2016-06-16 22:37] LABS: CALCIUM 8.2 mg/dL (8.7-10.7)
[2016-06-16] MEDS: traMADol 50 MG TABLET PO PRN (23:58)
[2016-06-17] MEDS: IPRATROPIUM/ALBUTEROL SULFATE 3 ML NEB NEB SCH ×4 (00:02→19:35)
[2016-06-17] MEDS: Sodium Chloride 0.9% 1,000 ML PRIMARY IV SCH ×2 (02:15→05:55)
[2016-06-17] MEDS: D5W IV SCH ×2 (02:26→21:36)
[2016-06-17] MEDS: CALCIUM GLUCONATE IV SCH ×2 (02:26→21:36)
[2016-06-17] MEDS ORDERED: POTASSIUM CHLORIDE 20 MEQ TAB PO ONE (04:02)
[2016-06-17] MEDS ORDERED: LEVOTHYROXINE 100 MCG TABLET PO SCH (06:30)
[2016-06-17] MEDS: FORMOTEROL FUMARATE INH SCH ×2 (06:51→19:35)
[2016-06-17] MEDS: BUDESONIDE INH SCH ×2 (06:51→19:35)
--- NOTE | 2016-06-17 08:30 | PDOC(PROG) ---
Date and Time of Service: 06/17/2016 at 8:30 Interval History: Patient states that she's feeling better. She states that the potassium IV causes some pain therefore, the nurses gave it to her orally. She denies any further bloody stools. Objective : Data - Labs CBC and BMP: 06/16/16 22:10 06/16/16 22:10 Labs - Last 24 Hours: Laboratory Results 06/16/16 06/16/16 Range/Units 17:08 22:10 WBC 8.81 7.75 (4.8-10.8) 10^3/uL RBC 3.38 L 3.97 L (4.20-5.40) 10^6/uL Hgb 7.4 L 10.0 L (12.0-16.0) g/dL Hct 24.1 L 29.3 L (37.0-47.0) % MCV 71.3 L 73.8 L (81-99) FL MCH 21.9 L 25.2 L (27-31) PG MCHC 30.7 L 34.1 (33-37) g/dL RDW Std Deviation 57.7 H 62.4 H (39-50) fL RDW Coeff of Lee 23.5 H 23.7 H (11.5-14.5) % Plt Count 395 H 380 H (140-350) 10*3/uL MPV 8.3 8.2 (7.4-12.2) FL Sodium 138 137 (135-145) meq/L Potassium 3.7 L 3.8 (3.8-5.2) meq/L Chloride 109 110 (98-112) meq/L Carbon Dioxide 20 L 17 L (23-33) meq/L Anion Gap 9 10 (5-20) BUN 5 L 6 L (7-22) mg/dL Creatinine 0.5 0.5 (0.50-1.20) mg/dL Estimated GFR (>60 ml/min/1.73m(2)) BUN/Creatinine Ratio 10.00 12.00 (6-20) Glucose 103 127 H (78-110) mg/dL Calculated Osmolality 282.0 283.0 (267-292) mOsm/kg Calcium 7.8 L 8.2 L (8.7-10.7) mg/dL - Vital Signs Vital Signs and I&O: Vital Signs - Last Taken Temperature 97.8 F 06/17/16 07:00 Pulse Rate 90 06/17/16 07:54 Respiratory Rate 21 06/17/16 07:54 Blood Pressure 110/63 06/17/16 07:54 Pulse Ox 96 06/17/16 07:54 Intake and Output (24hr x 4 totals) 06/15/16 06/16/16 06/17/16 06/18/16 05:59 05:59 05:59 05:59 Intake Total 1300 9027 Output Total 1600 4250 Balance -300 4777 Objective : Exam - General General Appearance: Cooperative Assessment and Plan - Patient Problems (1) GI bleed Current Visit: Yes Status: Acute Qualifiers: GI bleed type/associated pathology: anorectal hemorrhage Qualified Description: Gastrointestinal hemorrhage associated with anorectal source Qualifier Code(s): (K62.5) Hemorrhage of anus and rectum - Assessment / Plan Additional Assessment/Plan Details: The patient will need a colonoscopy. The risks of the procedure and benefits were discussed with the patient. I have discussed the pathophysiology between polyps and colon cancer. I also discussed the reasons why we use a colonoscopy for screening method versus the other screening methods are available. The patient like to proceed with a colonoscopy, The procedure reset up at first available date.
[2016-06-17 12:59] LABS: HEMATOCRIT 34.6 % (37.0-47.0); HEMOGLOBIN 11.8 g/dL (12.0-16.0); MEAN CORPUSCULAR HEMOGLOBIN 25.7 PG (27-31); MEAN CORPUSCULAR HGB CONC 34.1 g/dL (33-37); MEAN CORPUSCULAR VOLUME 75.4 FL (81-99); MEAN PLATELET VOLUME 8.1 FL (7.4-12.2); RED BLOOD COUNT 4.59 10^6/uL (4.20-5.40)
--- NOTE | 2016-06-17 13:00 | PDOC(PROG) ---
Date and Time of Service: 06/17/2016, 1259 Interval History: No completes of chest pain or shortness breath. Overall feels better as her hemoglobin and hematocrit have improved with blood transfusions. She states the same abdominal tightness is present. Choking sensation seems to be gone in her throat now. She states no further bloody stools. She's had one brown colored bowel movement in the last 12 hours or so. Objective : Data - Labs CBC and BMP: 06/16/16 22:10 06/16/16 22:10 Labs - Last 24 Hours: Laboratory Results 06/16/16 06/16/16 Range/Units 17:08 22:10 WBC 8.81 7.75 (4.8-10.8) 10^3/uL RBC 3.38 L 3.97 L (4.20-5.40) 10^6/uL Hgb 7.4 L 10.0 L (12.0-16.0) g/dL Hct 24.1 L 29.3 L (37.0-47.0) % MCV 71.3 L 73.8 L (81-99) FL MCH 21.9 L 25.2 L (27-31) PG MCHC 30.7 L 34.1 (33-37) g/dL RDW Std Deviation 57.7 H 62.4 H (39-50) fL RDW Coeff of Lee 23.5 H 23.7 H (11.5-14.5) % Plt Count 395 H 380 H (140-350) 10*3/uL MPV 8.3 8.2 (7.4-12.2) FL Sodium 138 137 (135-145) meq/L Potassium 3.7 L 3.8 (3.8-5.2) meq/L Chloride 109 110 (98-112) meq/L Carbon Dioxide 20 L 17 L (23-33) meq/L Anion Gap 9 10 (5-20) BUN 5 L 6 L (7-22) mg/dL Creatinine 0.5 0.5 (0.50-1.20) mg/dL Estimated GFR (>60 ml/min/1.73m(2)) BUN/Creatinine Ratio 10.00 12.00 (6-20) Glucose 103 127 H (78-110) mg/dL Calculated Osmolality 282.0 283.0 (267-292) mOsm/kg Calcium 7.8 L 8.2 L (8.7-10.7) mg/dL Objective : Exam - General General Appearance: No Acute Distress, Cooperative Additional General Exam Details: Vital Signs - Last Taken Temperature 98.2 F 06/17/16 12:00 Pulse Rate 85 06/17/16 12:00 Respiratory Rate 18 06/17/16 12:00 Blood Pressure 115/67 06/17/16 12:00 Pulse Ox 95 06/17/16 12:00 Still on oxygen. Has chronic COPD. - Eye Eye Exam: No Scleral Icterus - ENT ENT Exam: Mucous Membranes Moist - Respiratory Respiratory Exam: Clear to Auscultation - Bilaterally, Breathing Non Labored - Cardiovascular Cardiovascular Exam: RRR, No Murmur, No Clicks, No Gallops, No Rubs, No JVD - GI/Abdominal GI/Abdominal Exam: Normal Bowel Sounds, Non Tender, Non Distended, Soft - Extremities Extremities Exam: No Clubbing Present, No Cyanosis Present, +1 Edema (Trace edema in lower extremities.) - Neurological Neurological Exam: Alert, Oriented x 3, No Facial Droop, Speech Intact / Clear, Moves All Extremities Equally - Psychiatric Psychiatric Exam: Normal Affect, Normal Mood Assessment and Plan - Patient Problems (1) GI bleed Current Visit: Yes Status: Acute Qualifiers: GI bleed type/associated pathology: diverticulosis Qualified Description: Gastrointestinal hemorrhage associated with intestinal diverticulosis Qualifier Code(s): (K57.91) Diverticulosis of intestine, part unspecified, without perforation or abscess with bleeding (2) Coronary artery disease Current Visit: Yes Status: Acute Qualifiers: Coronary Disease-Associated Artery/Lesion type: [place] artery [place] vs. transplanted heart: [place] heart Associated angina: without angina Qualified Description: Coronary artery disease involving [place] coronary artery of [place] heart without angina pectoris Qualifier Code(s): (I25.10) Atherosclerotic heart disease of [place] coronary artery without angina pectoris (3) COPD (chronic obstructive pulmonary disease) Current Visit: No Status: Acute Qualifiers: COPD type: emphysema Emphysema type: panlobular Qualified Description: Panlobular emphysema Qualifier Code(s): (J43.1) Panlobular emphysema (4) Hypertension Current Visit: Yes Status: Acute Qualifiers: Hypertension type: essential hypertension Qualified Description: Essential hypertension Qualifier Code(s): (I10) Essential (primary) hypertension (5) Hypercholesterolemia Current Visit: Yes Status: Acute (6) Hypothyroidism Current Visit: Yes Status: Acute Qualifiers: Hypothyroidism type: due to medication Qualified Description: Hypothyroidism due to medication Qualifier Code(s): (E03.2) Hypothyroidism due to medicaments and other exogenous substances (7) Diverticulosis Current Visit: Yes Status: Acute Qualifiers: Diverticulosis site: diverticulosis of large intestine Diverticulosis bleeding: diverticulosis with bleeding Qualified Description: Diverticulosis of large intestine with hemorrhage Qualifier Code(s): ( K57.31) Diverticulosis of large intestine without perforation or abscess with bleeding (8) Anemia due to acute blood loss Current Visit: Yes Status: Acute - Assessment / Plan Additional Assessment/Plan Details: Check CBC and electrolytes, blood if indicated. EGD and colonoscopy tomorrow. I will discuss with cardiology regarding long-term Plavix from here on out. Risk of in-stent restenosis is 1% at this point with Plavix being stopped indefinitely. However this was a fairly big bleed, and the patient bled down to a hemoglobin of 6. It may not be safe for her to be on dual antiplatelet therapy. Arranged follow-up. Continue Protonix drip. No change in breathing therapies. Until scope, I think the patient would be best monitored in the intensive care unit, particularly if this is a diverticular bleed and something else opens up. Could also be an AV malformation although I think diverticular bleed is most likely based on the CT scan and the history.
[2016-06-17 13:13] LABS: CALCIUM 8.7 mg/dL (8.7-10.7)
[2016-06-17] MEDS ORDERED: SUPREP BOWEL PREP KIT PO SCH (16:00)
[2016-06-17] MEDS: ATORVASTATIN 40 MG TABLET PO SCH (21:35)
[2016-06-17] MEDS: traMADol 50 MG TABLET PO PRN (22:00)
[2016-06-18] MEDS: IPRATROPIUM/ALBUTEROL SULFATE 3 ML NEB NEB SCH ×4 (00:50→18:54)
[2016-06-18] MEDS: ACETAMINOPHEN 325 MG TABLET PO PRN ×2 (02:14→08:55)
[2016-06-18 05:10] LABS: BASOPHILS # (AUTO) 0.05 10*3/UL; BASOPHILS % (AUTO) 0.4 % (0-1); EOSINOPHILS # (AUTO) 0.11 10*3/UL; EOSINOPHILS % (AUTO) 0.8 % (0-8); HEMATOCRIT 37.2 % (37.0-47.0); HEMOGLOBIN 12.4 g/dL (12.0-16.0); LYMPHOCYTES # (AUTO) 1.03 10*3/uL; MEAN CORPUSCULAR HEMOGLOBIN 25.3 PG (27-31); MEAN CORPUSCULAR HGB CONC 33.3 g/dL (33-37); MEAN CORPUSCULAR VOLUME 75.8 FL (81-99); MEAN PLATELET VOLUME 8.6 FL (7.4-12.2); MONOCYTES # (AUTO) 1.55 10*3/UL (0.3-0.8); MONOCYTES % (AUTO) 10.9 % (5-15); NEUTROPHILS # (AUTO) 11.46 10*3/UL; NEUTROPHILS % (AUTO) 80.4 % (50-80); RED BLOOD COUNT 4.91 10^6/uL (4.20-5.40)
[2016-06-18 05:11] LABS: PLATELET MORPHOLOGY COMMENT NORMAL MORPHOLOGY (NORM); WBC MORPHOLOGY COMMENT NORMAL MORPHOLOGY (NORM)
[2016-06-18 05:12] LABS: RBC MORPHOLOGY COMMENT SEE COMMENTS (NORM)
[2016-06-18 05:21] LABS: CALCIUM 8.4 mg/dL (8.7-10.7)
[2016-06-18] MEDS ORDERED: LEVOTHYROXINE 100 MCG TABLET PO SCH (05:30)
[2016-06-18] MEDS: BUDESONIDE INH SCH ×2 (06:29→18:56)
[2016-06-18] MEDS: FORMOTEROL FUMARATE INH SCH ×2 (06:29→18:56)
[2016-06-18] MEDS ORDERED: POTASSIUM CHLORIDE 20 MEQ TAB PO ONE ×2 (09:20→19:05)
[2016-06-18] MEDS ORDERED: Lactated Ringers 1,000 ML PRIMARY IV ONE (11:37)
--- NOTE | 2016-06-18 11:46 | PDOC(PROG) ---
Date and Time of Service: 06/18/2016, 1145 Interval History: No complaints of chest pain or shortness breath. Still has some tightness in her abdomen but it sounds like this is a chronic issue. Not really change during the hospital stay. No nausea or vomiting. RNs have reported that stools have been brown. No bright red blood currently per rectum. Objective : Data - Labs CBC and BMP: 06/18/16 04:47 06/18/16 04:47 Labs - Last 24 Hours: Laboratory Results 06/17/16 06/18/16 Range/Units 12:56 04:47 WBC 13.57 H 14.24 H (4.8-10.8) 10^3/uL RBC 4.59 4.91 (4.20-5.40) 10^6/uL Hgb 11.8 L 12.4 (12.0-16.0) g/dL Hct 34.6 L 37.2 (37.0-47.0) % MCV 75.4 L 75.8 L (81-99) FL MCH 25.7 L 25.3 L (27-31) PG MCHC 34.1 33.3 (33-37) g/dL RDW Std Deviation 62.9 H 66.8 H (39-50) fL RDW Coeff of Lee 23.8 H 25.0 H (11.5-14.5) % Plt Count 367 H 420 H (140-350) 10*3/uL MPV 8.1 8.6 (7.4-12.2) FL Immature Gran % (Auto) 0.3 (0-5) % Neut % (Auto) 80.4 H (50-80) % Lymph % (Auto) 7.2 L (10-50) % [place] % (Auto) 10.9 (5-15) % Eos % (Auto) 0.8 (0-8) % Baso % (Auto) 0.4 (0-1) % Immature Gran # (Auto) 0.04 10*3/UL Neut # (Auto) 11.46 10*3/UL Lymph # (Auto) 1.03 10*3/uL [place] # (Auto) 1.55 H (0.3-0.8) 10*3/UL Eos # (Auto) 0.11 10*3/UL Baso # (Auto) 0.05 10*3/UL WBC Morphology Comment Normal morphology (NORM) Plt Morphology Comment Normal morphology (NORM) RBC Morph Comment See comments (NORM) Sodium 137 135 (135-145) meq/L Potassium 4.2 3.2 L (3.8-5.2) meq/L Chloride 107 102 (98-112) meq/L Carbon Dioxide 20 L 24 (23-33) meq/L Anion Gap 10 9 (5-20) BUN 7 4 L (7-22) mg/dL Creatinine 0.5 0.5 (0.50-1.20) mg/dL Estimated GFR (>60 ml/min/1.73m(2)) BUN/Creatinine Ratio 14.00 8.00 (6-20) Glucose 88 92 (78-110) mg/dL Calculated Osmolality 280.0 276.0 (267-292) mOsm/kg Calcium 8.7 8.4 L (8.7-10.7) mg/dL Objective : Exam - General General Appearance: No Acute Distress, Cooperative Additional General Exam Details: Vital Signs - Last Taken Temperature 97.8 F 06/18/16 06:00 Pulse Rate 94 06/18/16 11:00 Respiratory Rate 20 06/18/16 11:00 Blood Pressure 144/82 06/18/16 11:00 Pulse Ox 96 06/18/16 08:00 - Head Head Exam: Normal Inspection, Normocephalic, Atraumatic - Eye Eye Exam: No Scleral Icterus - Respiratory Respiratory Exam: Clear to Auscultation - Bilaterally, Breathing Non Labored - Cardiovascular Cardiovascular Exam: RRR, No Murmur, No Clicks, No Gallops, No Rubs, No JVD - GI/Abdominal GI/Abdominal Exam: Normal Bowel Sounds, Non Tender, Non Distended, Soft - Extremities Extremities Exam: No Clubbing Present, No Edema Present, No Cyanosis Present - Neurological Neurological Exam: Alert, Oriented x 3, No Facial Droop, Speech Intact / Clear, Moves All Extremities Equally Assessment and Plan - Patient Problems (1) GI bleed Current Visit: Yes Status: Acute Qualifiers: GI bleed type/associated pathology: diverticulosis Qualified Description: Gastrointestinal hemorrhage associated with intestinal diverticulosis Qualifier Code(s): (K57.91) Diverticulosis of intestine, part unspecified, without perforation or abscess with bleeding (2) Coronary artery disease Current Visit: Yes Status: Acute Qualifiers: Coronary Disease-Associated Artery/Lesion type: [place] artery [place] vs. transplanted heart: [place] heart Associated angina: without angina Qualified Description: Coronary artery disease involving [place] coronary artery of [place] heart without angina pectoris Qualifier Code(s): (I25.10) Atherosclerotic heart disease of [place] coronary artery without angina pectoris (3) COPD (chronic obstructive pulmonary disease) Current Visit: No Status: Acute Qualifiers: COPD type: emphysema Emphysema type: panlobular Qualified Description: Panlobular emphysema Qualifier Code(s): (J43.1) Panlobular emphysema (4) Hypertension Current Visit: Yes Status: Acute Qualifiers: Hypertension type: essential hypertension Qualified Description: Essential hypertension Qualifier Code(s): (I10) Essential (primary) hypertension (5) Hypercholesterolemia Current Visit: Yes Status: Acute (6) Hypothyroidism Current Visit: Yes Status: Acute Qualifiers: Hypothyroidism type: due to medication Qualified Description: Hypothyroidism due to medication Qualifier Code(s): (E03.2) Hypothyroidism due to medicaments and other exogenous substances (7) Diverticulosis Current Visit: Yes Status: Acute Qualifiers: Diverticulosis site: diverticulosis of large intestine Diverticulosis bleeding: diverticulosis with bleeding Qualified Description: Diverticulosis of large intestine with hemorrhage Qualifier Code(s): ( K57.31) Diverticulosis of large intestine without perforation or abscess with bleeding (8) Anemia due to acute blood loss Current Visit: Yes Status: Acute - Assessment / Plan Additional Assessment/Plan Details: Hypokalemia today. Also slightly decreased calcium. Replace with calcium gluconate and potassium. We will type and cross 1 more unit as the one unit we have ready to go is expiring today. EGD and colonoscopy today per Dr. Roman. Hopefully give us some clues as to whether this is a diverticular bleed or an AV malformation. Likely lower bleed, but patient did have some dysphagia type symptoms initially, and an EGD may be helpful here as well. Depending on results of above, may start to titrate protonic strip, and also decrease monitoring. 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 Assuming all goes well today with scopes and therapy, I'm hopeful for possible discharge in the next 24-48 hours.
[2016-06-18] MEDS ORDERED: LIDOCAINE 2% VISCOUS(20 MG/1 ML) - 15 ML UD CUP PO ONE (12:10)
--- NOTE | 2016-06-18 12:50 | GEN.OPNOTE ---
Colonoscopy Procedure Note Surgery Date: 06/18/16 Preoperative Diagnosis: Gastrointestinal hemorrhage Postoperative Diagnosis: Rectal cancer at 10 cm. [place] diverticulosis. Sessile polyp in the ascending colon. Sessile polyp at 80 cm Procedure: Colonoscopy with snare polypectomy and biopsy rectal cancer Surgeon: Adam Roman MD Anesthesia Type: MAC Indications: Gastric intestinal hemorrhage Findings: Prep : Excellent Cecum : Endoscopic video colonoscope inserted and guided over the cecum. Cecal anatomy identified. A normal-appearing cecum Ascending : In the ascending colon Patient had a sessile polyp snare polypectomy. Patient also had diverticular disease Transverse : Patient diverticulosis of the transverse colon Sigmoid : In the descending colon that measured 80 cm per set to sessile polyps removed with snare polypectomy patient diverticular disease of the descending and sigmoid colon Rectum : At 10 cm patient had what appeared be a rectal cancer biopsies taken. This tumor was about half the circumference of the colon bled very easily. Biopsies taken Digital Rectal Exam : A lubricated flexible colonoscope was inserted and passed to the blind end of the cecum.
[2016-06-18] MEDS ORDERED: D5W IV SCH (15:10)
[2016-06-18] MEDS ORDERED: traMADol 50 MG TABLET PO PRN (15:10)
[2016-06-18] MEDS ORDERED: ONDANSETRON 4 MG/2 ML VIAL IVP PRN (15:10)
[2016-06-18] MEDS ORDERED: LIDOCAINE W/ SODIUM BICARB 0.5 ML SYR SUBD PRN (15:10)
[2016-06-18] MEDS ORDERED: ACETAMINOPHEN 325 MG TABLET PO PRN (15:10)
[2016-06-18] MEDS ORDERED: CALCIUM GLUCONATE IV SCH (15:10)
[2016-06-18] MEDS: METOPROLOL SUCCINATE 50 MG SR 24H TABLET PO SCH (15:40)
[2016-06-18] MEDS ORDERED: ATORVASTATIN 40 MG TABLET PO SCH (21:00)
[2016-06-19] MEDS: IPRATROPIUM/ALBUTEROL SULFATE 3 ML NEB NEB SCH ×2 (01:04→06:34)
[2016-06-19 05:15] LABS: HEMATOCRIT 38.7 % (37.0-47.0); HEMOGLOBIN 12.5 g/dL (12.0-16.0); MEAN CORPUSCULAR HEMOGLOBIN 24.5 PG (27-31); MEAN CORPUSCULAR HGB CONC 32.3 g/dL (33-37); MEAN CORPUSCULAR VOLUME 75.7 FL (81-99); MEAN PLATELET VOLUME 9.1 FL (7.4-12.2); RED BLOOD COUNT 5.11 10^6/uL (4.20-5.40)
[2016-06-19 05:23] LABS: CALCIUM 8.4 mg/dL (8.7-10.7)
[2016-06-19] MEDS ORDERED: LEVOTHYROXINE 100 MCG TABLET PO SCH (05:30)
[2016-06-19] MEDS: BUDESONIDE INH SCH (06:38)
[2016-06-19] MEDS: FORMOTEROL FUMARATE INH SCH (06:38)
--- NOTE | 2016-06-19 07:53 | DCSUMMARY ---
Hospitalization Summary Admit Date: 06/15/16 Discharge Date: 06/19/16 Hospital Course: Discharge diagnoses 1. Lower GI bleed 2. Rectal cancer at 10 cm biopsy was taken 3. Colonic diverticulosis 4. Sessile polyp in the ascending colon status post polypectomy 5. Coronary artery disease status post stent in December 2015 6. Hypertension 7. Hypothyroidism 8. History of breast cancer status post mastectomy 9. History of bladder cancer 10. Hypercholesterolemia 11. Abdominal wall hernia 12. History of hernia operation with subsequent mesh infection 13. Tremor Hospital course This is a 76 years old female with medical history significant for history of coronary artery disease with previous stent in December 2015, hypothyroidism, history of abdominal wall hernia surgery that was complicated by infection in the past, history of breast cancer status post mastectomy, history of bladder cancer was referred to the hospital because of shortness of breath and lightheadedness she also gave a history of bright red her rectum in addition to passing clots which she attributed to internal hemorrhoid. Hemoglobin in the ER was 7 because of that patient was admitted to the hospital. She was admitted by Dr. Olea please see his note. Patient had an S antibody so the blood was ordered from [place] and once we got the blood she was transfused 4 units of blood. She had a nuclear scan to see if there is an active bleed and there was no evidence of active bleed. Her symptoms improved then she had a colonoscopy which showed rectal cancer and diverticulosis and also sessile polyp for which she polypectomy. Patient was referred to [place] [facility] and they will call her with appointment, and she'll follow-up also Dr. Roman as an outpatient. She'll get also a new primary and she will see . She had also low potassium and she was given some potassium. I saw the patient on the day of discharge she was feeling much better than when she came, the bleeding stopped, shortness of breath improved. Exam was remarkable for abdominal wall hernias otherwise nothing significant on exam. We felt that she could be discharged home and follow-up with Dr. Roman next week and with her primary and oncology will call her for the appointment. Laboratory Results 06/15/16 06/16/16 06/16/16 Range/Units 16:39 04:07 17:08 WBC 9.17 8.81 (4.8-10.8) 10^3/uL RBC 3.07 L 3.38 L (4.20-5.40) 10^6/uL Hgb 6.0 L* 7.4 L (12.0-16.0) g/dL Hct 19.8 L* 24.1 L (37.0-47.0) % MCV 64.5 L 71.3 L (81-99) FL MCH 19.5 L 21.9 L (27-31) PG MCHC 30.3 L 30.7 L (33-37) g/dL RDW Std Deviation 42.4 57.7 H (39-50) fL RDW Coeff of Lee 18.7 H 23.5 H (11.5-14.5) % Plt Count 370 H 395 H (140-350) 10*3/uL MPV 8.8 8.3 (7.4-12.2) FL Immature Gran % (Auto) (0-5) % Neut % (Auto) (50-80) % Lymph % (Auto) (10-50) % [place] % (Auto) (5-15) % Eos % (Auto) (0-8) % Baso % (Auto) (0-1) % Immature Gran # (Auto) 10*3/UL Neut # (Auto) 10*3/UL Lymph # (Auto) 10*3/uL [place] # (Auto) (0.3-0.8) 10*3/UL Eos # (Auto) 10*3/UL Baso # (Auto) 10*3/UL WBC Morphology Comment (NORM) Plt Morphology Comment (NORM) RBC Morph Comment (NORM) PT 10.3 (9.7-11.4) secs INR 1.00 (0.00-5.90) N/A APTT 23.4 (22.6-31.3) SECS Sodium 135 138 (135-145) meq/L Potassium 4.5 3.7 L (3.8-5.2) meq/L Chloride 101 109 (98-112) meq/L Carbon Dioxide 20 L 20 L (23-33) meq/L Anion Gap 14 9 (5-20) BUN 11 5 L (7-22) mg/dL Creatinine 0.7 0.5 (0.50-1.20) mg/dL Estimated GFR (>60 ml/min/1.73m(2)) BUN/Creatinine Ratio 15.71 10.00 (6-20) Glucose 117 H 103 (78-110) mg/dL Calculated Osmolality 279.0 282.0 (267-292) mOsm/kg Calcium 9.0 7.8 L (8.7-10.7) mg/dL Magnesium (1.6-2.4) mg/dL Troponin I < 0.012 (< 0.040) ng/mL NT-Pro-B Natriuret Pep 251 H (0-125) PG/ML Blood Type A POSITIVE Antibody Screen Positive Antibody Identification Anti-S Crossmatch See Detail 06/16/16 06/17/16 06/18/16 Range/Units 22:10 12:56 04:47 WBC 7.75 13.57 H 14.24 H (4.8-10.8) 10^3/uL RBC 3.97 L 4.59 4.91 (4.20-5.40) 10^6/uL Hgb 10.0 L 11.8 L 12.4 (12.0-16.0) g/dL Hct 29.3 L 34.6 L 37.2 (37.0-47.0) % MCV 73.8 L 75.4 L 75.8 L (81-99) FL MCH 25.2 L 25.7 L 25.3 L (27-31) PG MCHC 34.1 34.1 33.3 (33-37) g/dL RDW Std Deviation 62.4 H 62.9 H 66.8 H (39-50) fL RDW Coeff of Lee 23.7 H 23.8 H 25.0 H (11.5-14.5) % Plt Count 380 H 367 H 420 H (140-350) 10*3/uL MPV 8.2 8.1 8.6 (7.4-12.2) FL Immature Gran % (Auto) 0.3 (0-5) % Neut % (Auto) 80.4 H (50-80) % Lymph % (Auto) 7.2 L (10-50) % [place] % (Auto) 10.9 (5-15) % Eos % (Auto) 0.8 (0-8) % Baso % (Auto) 0.4 (0-1) % Immature Gran # (Auto) 0.04 10*3/UL Neut # (Auto) 11.46 10*3/UL Lymph # (Auto) 1.03 10*3/uL [place] # (Auto) 1.55 H (0.3-0.8) 10*3/UL Eos # (Auto) 0.11 10*3/UL Baso # (Auto) 0.05 10*3/UL WBC Morphology Comment Normal morphology (NORM) Plt Morphology Comment Normal morphology (NORM) RBC Morph Comment See comments (NORM) PT (9.7-11.4) secs INR (0.00-5.90) N/A APTT (22.6-31.3) SECS Sodium 137 137 135 (135-145) meq/L Potassium 3.8 4.2 3.2 L (3.8-5.2) meq/L Chloride 110 107 102 (98-112) meq/L Carbon Dioxide 17 L 20 L 24 (23-33) meq/L Anion Gap 10 10 9 (5-20) BUN 6 L 7 4 L (7-22) mg/dL Creatinine 0.5 0.5 0.5 (0.50-1.20) mg/dL Estimated GFR (>60 ml/min/1.73m(2)) BUN/Creatinine Ratio 12.00 14.00 8.00 (6-20) Glucose 127 H 88 92 (78-110) mg/dL Calculated Osmolality 283.0 280.0 276.0 (267-292) mOsm/kg Calcium 8.2 L 8.7 8.4 L (8.7-10.7) mg/dL Magnesium (1.6-2.4) mg/dL Troponin I (< 0.040) ng/mL NT-Pro-B Natriuret Pep (0-125) PG/ML Blood Type Antibody Screen Antibody Identification Crossmatch 06/18/16 06/19/16 Range/Units 10:55 04:40 WBC 11.20 H (4.8-10.8) 10^3/uL RBC 5.11 (4.20-5.40) 10^6/uL Hgb 12.5 (12.0-16.0) g/dL Hct 38.7 (37.0-47.0) % MCV 75.7 L (81-99) FL MCH 24.5 L (27-31) PG MCHC 32.3 L (33-37) g/dL RDW Std Deviation 69.9 H (39-50) fL RDW Coeff of Lee 25.8 H (11.5-14.5) % Plt Count 382 H (140-350) 10*3/uL MPV 9.1 (7.4-12.2) FL Immature Gran % (Auto) (0-5) % Neut % (Auto) (50-80) % Lymph % (Auto) (10-50) % [place] % (Auto) (5-15) % Eos % (Auto) (0-8) % Baso % (Auto) (0-1) % Immature Gran # (Auto) 10*3/UL Neut # (Auto) 10*3/UL Lymph # (Auto) 10*3/uL [place] # (Auto) (0.3-0.8) 10*3/UL Eos # (Auto) 10*3/UL Baso # (Auto) 10*3/UL WBC Morphology Comment (NORM) Plt Morphology Comment (NORM) RBC Morph Comment (NORM) PT (9.7-11.4) secs INR (0.00-5.90) N/A APTT (22.6-31.3) SECS Sodium 136 (135-145) meq/L Potassium 3.5 L (3.8-5.2) meq/L Chloride 103 (98-112) meq/L Carbon Dioxide 23 (23-33) meq/L Anion Gap 10 (5-20) BUN 6 L (7-22) mg/dL Creatinine 0.5 (0.50-1.20) mg/dL Estimated GFR (>60 ml/min/1.73m(2)) BUN/Creatinine Ratio 12.00 (6-20) Glucose 89 (78-110) mg/dL Calculated Osmolality 278.0 (267-292) mOsm/kg Calcium 8.4 L (8.7-10.7) mg/dL Magnesium 2.0 (1.6-2.4) mg/dL Troponin I (< 0.040) ng/mL NT-Pro-B Natriuret Pep (0-125) PG/ML Blood Type A POSITIVE Antibody Screen Negative Antibody Identification Crossmatch See Detail Discharge instruction Diet regular To this started Medications Medication Instructions Recorded Confirmed Type Albuterol Neb Soln 0.021% 1 unit INH Q4H 02/04/12 06/15/16 History Amlodipine Besylate 1 tab PO DAILY tab 01/15/15 06/15/16 History Budesonide/Formoterol Fumarate 2 puff INH BID inh 01/15/15 06/15/16 History [SYMBICORT] Levothyroxine Sodium 1 tab PO DAILY tab 01/15/15 06/15/16 History Aspirin 81 mg PO DAILY tab 01/10/16 06/15/16 History Atorvastatin Calcium 1 tab PO DAILY tab 01/10/16 06/15/16 History Metoprolol Succinate 1 tab PO QD tab 02/06/16 06/15/16 History Ipratropium Brom Neb Soln 0.2 mg INH Q6HR 06/15/16 06/15/16 History [Atrovent Neb Soln] Pantoprazole Sodium [Protonix] 40 mg PO DAILY #30 tablet. 06/19/16 Rx Potassium Chloride [Klor-Con] 10 meq PO DAILY #4 tab 06/19/16 Rx F/U with Dr. Roman next week, with her PCP in 1-2 weeks and with oncology they will call her for appointment Condition at discharge was stable for discharge Exam - Vitals Vital Signs: Vital Signs Temperature 97.6 F Temperature Source Temporal Artery Scan Pulse Rate [Telemetry] 97 Pulse Rate [Apical] 80 Pulse Rate [Pulse Oximeter 94 Right] Pulse Rate 79 Respiratory Rate 24 Blood Pressure [Right Calf] 123/73 Blood Pressure [Right Arm] 143/77 Blood Pressure 107/64 Pulse Ox 94 Oxygen Flow Rate 1.5 Oxygen Delivery Method Nasal Cannula Height 5 ft Weight 137 lb 14.4 oz - General General Appearance: POSITIVE: No Acute Distress, Cooperative - Head Head Exam: POSITIVE: Normal Inspection - Eye Eye Exam: POSITIVE: Normal Appearance - ENT ENT Exam: POSITIVE: Normal Exam - Neck Neck Exam: POSITIVE: Normal Inspection - Respiratory Respiratory Exam: POSITIVE: Clear to Auscultation - Bilaterally - Cardiovascular Cardiovascular Exam: POSITIVE: RRR - GI/Abdominal GI/Abdominal Exam: POSITIVE: Normal Bowel Sounds, Non Tender, Soft Additional GI/Abdominal Exam Details: Abdominal wall hernia noted - Rectal Rectal Exam: POSITIVE: Deferred - External Exam: POSITIVE: Deferred - Extremities Extremities Exam: POSITIVE: Normal Inspection - Back Back Exam: POSITIVE: Normal Inspection - Neurological Neurological Exam: POSITIVE: Alert, Oriented x 3, CN II-XII Intact - Psychiatric Psychiatric Exam: POSITIVE: Normal Affect - Integumentary Integumentary Exam: POSITIVE: Normal Color
[2016-06-19 08:41] VITALS: RESP 20; TEMP 98.2
[2016-06-19] MEDS ORDERED: ASPIRIN 81 MG (BABY) CHEWABLE TABLET PO SCH (09:00)
[2016-06-19] MEDS ORDERED: AmLODIPine Tab 5 MG TABLET PO SCH (09:00)
[2016-06-19] MEDS: METOPROLOL SUCCINATE 50 MG SR 24H TABLET PO SCH (09:45)
== END 2016-06-19 11:10 | disposition home or self-care (01) | DRG 378 ==
LOC: ER 15:59 → ICU 16:53 → UNDOADMIN 16:53 → MED/SURG 16:53 → OPS 06-18 11:45 → MED/SURG 06-18 13:10 → ICU 06-18 13:30 → MED/SURG 06-18 14:11
PROVIDERS: ADMIT Family Medicine; ATTEND Family Medicine
DX: K92.2 Gastrointestinal hemorrhage, unspecified (principal); K64.9 Unspecified hemorrhoids; D64.9 Anemia, unspecified; C20 Malignant neoplasm of rectum; K57.90 Diverticulosis of intestine, part unspecified, without perforation or abscess without bleeding; K63.5 Polyp of colon; I25.10 Atherosclerotic heart disease of native coronary artery without angina pectoris; I10 Essential (primary) hypertension; E03.9 Hypothyroidism, unspecified; Z90.10 Acquired absence of unspecified breast and nipple; Z85.51 Personal history of malignant neoplasm of bladder; E78.00 Pure hypercholesterolemia, unspecified; K43.9 Ventral hernia without obstruction or gangrene; R25.1 Tremor, unspecified; J44.9 Chronic obstructive pulmonary disease, unspecified
CPT/HCPCS: 36415; 36430; 74177; 78278; 80048; 83735; 83880; 84484; 85025; 85027; 85610; 85730; 86850; 86870; 86900; 86901; 86906; 86922; 93005; 93010; 94640; 94761; 99284; J0610; J3480; J3490; J7030; J7040; J7050; J7060; J7120; J7512; J7620; P9016; Q0163

== ENCOUNTER → 2016-06-15 | Outpatient (CLI) | payer OTHER, MEDICARE ==
[2016-06-15 14:56] LABS: BASOPHILS # (AUTO) 0.09 10*3/UL; BASOPHILS % (AUTO) 0.8 % (0-1); EOSINOPHILS # (AUTO) 0.23 10*3/UL; EOSINOPHILS % (AUTO) 2.1 % (0-8); LYMPHOCYTES # (AUTO) 2.03 10*3/uL; MEAN CORPUSCULAR HEMOGLOBIN 19.1 PG (27-31); MEAN CORPUSCULAR HGB CONC 29.2 g/dL (33-37); MEAN CORPUSCULAR VOLUME 65.6 FL (81-99); MEAN PLATELET VOLUME 8.5 FL (7.4-12.2); MONOCYTES # (AUTO) 0.87 10*3/UL (0.3-0.8); MONOCYTES % (AUTO) 7.8 % (5-15); NEUTROPHILS # (AUTO) 7.95 10*3/UL; NEUTROPHILS % (AUTO) 70.8 % (50-80); RED BLOOD COUNT 3.66 10^6/uL (4.20-5.40)
[2016-06-15 14:59] LABS: PLATELET MORPHOLOGY COMMENT NORMAL MORPHOLOGY (NORM); RBC MORPHOLOGY COMMENT NORMAL MORPHOLOGY (NORM); WBC MORPHOLOGY COMMENT NORMAL MORPHOLOGY (NORM)
[2016-06-15 15:32] LABS: BUN/CREATININE RATIO 17.14 (6-20); CALCIUM 9.5 mg/dL (8.7-10.7); SERUM ALBUMIN 3.9 g/dL (3.5-4.8)
--- NOTE | 2016-06-16 09:32 | DI ---
PA /LATERAL CHEST X-RAY, 06/15/2016 2:34 PM : Clinical History: Shortness of breath Previous Exam: December 31, 2015 There is no acute soft tissue or bony abnormality. Heart size is normal. Lungs are clear. Mediastinal structures are normal. There are no pulmonary nodules. There is diffuse COPD. IMPRESSION: No acute disease.
== END ==
LOC: RAD 14:25
PROVIDERS: ATTEND Nurse Practitioner Family
DX: R42 Dizziness and giddiness (principal); R53.83 Other fatigue; R06.02 Shortness of breath; J44.9 Chronic obstructive pulmonary disease, unspecified; K62.5 Hemorrhage of anus and rectum
CPT/HCPCS: 36415; 71020; 80053; 83540; 83550; 85025; 85379

== ENCOUNTER → 2016-06-23 | Outpatient (CLI) | payer OTHER, MEDICARE | LOC: MMPC 11:11 | PROVIDERS: ATTEND Surgery | DX: C18.9 Malignant neoplasm of colon, unspecified (principal) | CPT/HCPCS: 99212 ==

== ENCOUNTER → 2016-06-25 | Outpatient (CLI) | payer OTHER, MEDICARE ==
--- NOTE | 2016-06-25 14:03 | DI ---
MRI PELVIS SCAN WITHOUT AND WITH IV CONTRAST, 06/25/2016 10:02 AM: Clinical History: Newly diagnosed rectal cancer. Previous Exam: None at this facility. Technique: Axial and coronal T1 weighted and T2 weighted; fat saturated axial T1-weighted pre-and pos tcontrast scans and a postcontrast coronal T1-weighted sequence. There is no abnormal bone signal pattern. This patient has a large ventral hernia below the umbilicus through which only loops of small bowel have herniated without evidence of an obstruction. There is a large soft tissue mass that occupies the entire diameter of the rectum and it measures 5 cm in diam eter. There is enhancement of the central portion of this mass. There are extensive diverticula in th e sigmoid and rectosigmoid colon, but no adenopathy is appreciated and there is no ascites. The uteru s is small but normal in appearance. Both ovaries are atrophic but normal. Readin. There is a large soft tissue mass in the rectum consistent with the clinical diagnosis of rectal cancer. This mass measures approximately 5 cm in diameter and it is difficult to establish from which wall it arises. There is no evidence of penetration of this mass into the surrounding perirectal fat . With contrast, there is enhancement of the tumor but predominantly within the center of the lesion. No fluid is seen in the center to suggest central necrosis. No definite adenopathy is identified and there is no ascites. 2. There is a large ventral defect with a significant amount of small bowel and mesenteric fat that has herniated through the defect without evidence of strangulation. The uterus and both ovaries are a trophic but normal.
== END ==
LOC: MRI 09:59
PROVIDERS: ATTEND Radiology Radiation Oncology
DX: C20 Malignant neoplasm of rectum (principal); K62.89 Other specified diseases of anus and rectum; M79.605 Pain in left leg
CPT/HCPCS: 72197; A9579; 93971

== ENCOUNTER → 2016-06-25 | Outpatient (CLI) | payer OTHER, MEDICARE ==
--- NOTE | 2016-06-25 10:47 | DI ---
VENOUS DOPPLER ULTRASOUND OF THE LEFT LOWER EXTREMITY, 06/25/2016 9:57 AM: Clinical History: Acute pain of the left lower extremity. Previous Exam: None. Technique: 2D real-time imaging is supplemented with color Doppler ultrasound. Compression and augmen tation maneuvers were performed. The deep venous system from the groin to the popliteal fossa is norm al. The greater saphenous vein is normal. Reading: Negative venous Doppler ultrasound of the left lower extremity.
== END ==
LOC: MRI 09:50 → US 09:50
PROVIDERS: ATTEND Surgery
DX: M79.605 Pain in left leg (principal)
CPT/HCPCS: 93971

== ENCOUNTER → 2016-07-07 | Outpatient (CLI) | payer OTHER, MEDICARE | LOC: MMPC 11:11 | PROVIDERS: ATTEND Internal Medicine | DX: I21.3 ST elevation (STEMI) myocardial infarction of unspecified site (principal); C20 Malignant neoplasm of rectum; C19 Malignant neoplasm of rectosigmoid junction; Z90.12 Acquired absence of left breast and nipple; C67.9 Malignant neoplasm of bladder, unspecified; E03.9 Hypothyroidism, unspecified; K43.2 Incisional hernia without obstruction or gangrene; J44.9 Chronic obstructive pulmonary disease, unspecified | CPT/HCPCS: 99213; G0463 ==

== ENCOUNTER → 2016-07-28 | Outpatient (CLI) | payer OTHER, MEDICARE | LOC: MMPC 11:11 | PROVIDERS: ATTEND Internal Medicine | DX: C19 Malignant neoplasm of rectosigmoid junction (principal); J44.9 Chronic obstructive pulmonary disease, unspecified; C67.9 Malignant neoplasm of bladder, unspecified; E03.9 Hypothyroidism, unspecified; Z95.5 Presence of coronary angioplasty implant and graft | CPT/HCPCS: 99213; G0463 ==

== ENCOUNTER → 2016-11-11 | Outpatient (CLI) | payer OTHER, MEDICARE ==
[2016-11-11 17:24] LABS: BASOPHILS # (AUTO) 0.06 10*3/UL; BASOPHILS % (AUTO) 0.6 % (0-1); EOSINOPHILS % (AUTO) 2.1 % (0-8); HEMATOCRIT 40.7 % (37.0-47.0); HEMOGLOBIN 13.7 g/dL (12.0-16.0); MEAN CORPUSCULAR HEMOGLOBIN 28.5 PG (27-31); MEAN CORPUSCULAR HGB CONC 33.7 g/dL (33-37); MEAN CORPUSCULAR VOLUME 84.6 FL (81-99); MEAN PLATELET VOLUME 9.1 FL (7.4-12.2); MONOCYTES # (AUTO) 0.93 10*3/UL (0.3-0.8); MONOCYTES % (AUTO) 9.8 % (5-15); NEUTROPHILS # (AUTO) 7.45 10*3/UL; NEUTROPHILS % (AUTO) 78.5 % (50-80); RED BLOOD COUNT 4.81 10^6/uL (4.20-5.40)
[2016-11-11 17:30] LABS: PLATELET MORPHOLOGY COMMENT NORMAL MORPHOLOGY (NORM); RBC MORPHOLOGY COMMENT NORMAL MORPHOLOGY (NORM); WBC MORPHOLOGY COMMENT NORMAL MORPHOLOGY (NORM)
[2016-11-11 18:01] LABS: BUN/CREATININE RATIO 36.25 (6-20); CALCIUM 10.3 mg/dL (8.7-10.7); SERUM ALBUMIN 4.6 g/dL (3.5-4.8)
== END ==
LOC: MOB LAB 15:10
PROVIDERS: ATTEND Internal Medicine
DX: C19 Malignant neoplasm of rectosigmoid junction (principal); E03.9 Hypothyroidism, unspecified; J44.9 Chronic obstructive pulmonary disease, unspecified; C50.911 Malignant neoplasm of unspecified site of right female breast; Z85.51 Personal history of malignant neoplasm of bladder
CPT/HCPCS: 36415; 80053; 85025

== ENCOUNTER 2018-08-02 00:52 | Inpatient (IN) ==
[2018-08-02] MEDS ORDERED: Sodium Chloride 0.9% 1,000 ML PRIMARY IV ONE (01:13)
[2018-08-02] MEDS ORDERED: ONDANSETRON 4 MG/2 ML VIAL IVP ONE (01:13)
[2018-08-02] MEDS ORDERED: HYDROmorphone 2 MG/1 ML IVP ONE (01:13)
[2018-08-02 01:26] LABS: BLOOD UREA NITROGEN 15 mg/dL (7-22); BUN/CREATININE RATIO 21.42 (6-20); LIPASE 97 IU/L (23-300); SERUM ALBUMIN 4.7 g/dL (3.5-4.8)
[2018-08-02 02:19] LABS: BILIRUBIN,URINE NEGATIVE (NEG); CLARITY,URINE CLEAR (CLEAR); COLOR,URINE YELLOW (Y); GLUCOSE, URINE (UA) NEGATIVE (NEG); OCCULT BLOOD,URINE Trace-intact (NEG); PH,URINE 7.5 (5.0-8.5); PROTEIN,URINE NEGATIVE (NEG); URINE SAMPLE TYPE CLEAN CATCH URINE; UROBILINOGEN,URINE 0.2 EU/dL (0.2)
[2018-08-02 02:20] LABS: Hematocrit [HCT] 39.3 % (37.0-47.0); Hemoglobin [HGB] 13.4 g/dL (12.0-16.0); MEAN CORPUSCULAR HEMOGLOBIN 28.3 PG (27-31); MEAN CORPUSCULAR HGB CONC 34.1 g/dL (33-37); MEAN CORPUSCULAR VOLUME 83 FL (81-99); MEAN PLATELET VOLUME 7.7 FL (7.4-12.2); RED BLOOD COUNT 4.74 10^6/uL (4.20-5.40)
[2018-08-02 02:21] LABS: PLATELET MORPHOLOGY COMMENT NORMAL MORPHOLOGY (NORM); RBC MORPHOLOGY COMMENT NORMAL MORPHOLOGY (NORM); WBC MORPHOLOGY COMMENT NORMAL MORPHOLOGY (NORM)
[2018-08-02 02:23] LABS: BAND NEUTROPHILS % 0 % (0-10); BASOPHILS % (MANUAL) 0 % (0-1); EOSINOPHILS % (MANUAL) 0 % (0-8); METAMYELOCYTES % 0 %; MONOCYTES % (MANUAL) 3 % (0-12); MYELOCYTES % 0 %; NEUTROPHILS % (MANUAL) 95 % (50-80); PROMYELOCYTES % 0 %
--- NOTE | 2018-08-02 02:27 | DI ---
EXAM: CT Abdomen and Pelvis With Intravenous Contrast CLINICAL HISTORY: ITS.REASON Abdominal Pain Physician Notes: Tech Comments: TECHNIQUE: Axial computed tomography images of the abdomen and pelvis with intravenous contrast. COMPARISON: 07/13/17 FINDINGS: Lung bases: Stable linear opacity in the lingula probably represents scarring. Centrilobular emphysema. Mediastinum: Small hiatal hernia. ABDOMEN: Liver: Unremarkable. Gallbladder and bile ducts: Status post cholecystectomy. Moderate biliary dilatation with the common bile duct measuring up to 18 mm tapers to normal caliber the distal common bile duct is unchanged and is probably related to postoperative changes. Pancreas: Unremarkable. Spleen: Unremarkable. Adrenals: Diffuse thickening of the bilateral adrenal glands. 1.8 cm nodule in the left adrenal gland is unchanged. Kidneys and ureters: Unremarkable. Stomach and bowel: Status post distal colon resection with intact anastomosis. Diverticulosis of the sigmoid and descending colon, transverse colon without diverticulitis. Large complex ventral hernia containing the appendix, transverse colon and multiple loops of dilated small bowel with wall thickening and surrounding fat stranding and fluid and concerning for strangulation. There is upstream dilatation of multiple loops of small bowel concerning for obstruction. PELVIS: Appendix: Normal appendix. Bladder: Unremarkable. Reproductive: Unremarkable. ABDOMEN and PELVIS: Intraperitoneal space: Unremarkable. Bones/joints: Unremarkable. Soft tissues: See above. Vasculature: Moderate atherosclerosis of the aorta and iliac arteries. No abdominal aortic aneurysm. Lymph nodes: No enlarged or abnormal lymph nodes. IMPRESSION: Large complex ventral hernia containing the appendix, transverse colon and multiple loops of dilated small bowel with wall thickening and surrounding fat stranding and fluid and concerning for strangulation. There is upstream dilatation of multiple loops of small bowel concerning for obstruction.
--- NOTE | 2018-08-02 03:08 | PDOC ---
Abdomen/Flank HPI - General Chief Complaint: Abdomen Pain Stated Complaint: ABDOMINAL PAIN Date Seen by Provider: 08/02/18 Time Seen by Provider: 01:00 Source: POSITIVE: Patient Exam Limitations: POSITIVE: No limitations Nurse's Notes Reviewed & Considered: Yes - History of Present Illness Initial Comments: The patient is a 78-year-old female who is brought to the emergency room by her . 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 She states she had about 5 episodes of vomiting. Patient has had extensive abdominal surgery in the past. Approximately 2 years ago she was diagnosed with bowel cancer in the process of working her up for gastrointestinal hemorrhage. She underwent a colectomy with associated ileostomy, which was subsequently reversed. She's also had an appendectomy and cholecystectomy. She states she's also had a hernia repair. Left mastectomy. She states she's had a myocardial infarction in the past. She is on metoprolol, amlodipine and a statin. Patient denies any fevers or chills. No melena, hematochezia, hematemesis, dysuria or hematuria. 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) Severity: Severe Quality: REPORTS: "Pain", Tenderness Abdominal Pain Onset Location: REPORTS: Other (Pain mostly chest below and right of the umbilicus at site of a abdominal hernia) Abdominal Pain Radiation: REPORTS: No radiation Context: REPORTS: None Modifying Factors: improves with: Vomiting Associated Symptoms: REPORTS: Swelling/mass in abdomen (Abdominal wall hernia), Vomiting Similar Symptoms Previously: Yes Recent Care Received: REPORTS: Denies Any Prior Injuries Related to Current Complaint?: No - Patient Home Medications Home Medications: Home Medications Potassium Chloride [Klor-Con] 10 meq PO DAILY #4 tab 06/19/16 Ipratropium [place] 2.5 ml INH Q12H #0 07/07/16 acetaminophen 325 mg capsule 325 mg PO BID PRN cap 07/26/17 calcium carbonate 500 mg calcium (1,250 mg) tablet 500 mg PO QDAY tab 07/26/17 fluticasone propionate 50 mcg/actuation nasal spray,suspension 1 spray INASL QDAY 07/26/17 potassium chloride ER 20 mEq tablet,extended release(part/cryst) 20 meq PO BID tab 07/26/17 simethicone 80 mg tablet 80 mg PO BID-QID PRN 07/26/17 aspirin 81 mg tablet,delayed release 81 mg PO QDAY #0 tab 04/25/18 atorvastatin 40 mg tablet 40 mg PO QDAY tab 04/25/18 levothyroxine 112 mcg tablet 112 mcg PO QDAY tab 04/25/18 metoprolol succinate ER 50 mg tablet,extended release 24 hr 50 mg PO QDAY tab 04/25/18 pantoprazole 40 mg tablet,delayed release 40 mg PO QDAY tab 04/25/18 calcium carbonate 500 mg calcium (1,250 mg) tablet 500 mg PO QDAY #30 tab 05/04/18 cholecalciferol (vitamin D3) 1,000 unit tablet 1,000 unit PO QDAY #30 tab 05/04/18 budesonide-formoterol HFA 80 mcg-4.5 mcg/actuation aerosol inhaler 2 puff INH BID #120 inh 05/13/18 amlodipine 10 mg tablet 10 mg PO QDAY #90 tab 06/09/18 - Patient Allergies Allergies/Adverse Reactions: Allergies Allergy/AdvReac Type Severity Reaction Status Date / Time tramadol Allergy Severe HALLUCINATI Verified 08/02/18 01:12 ONS chlorine Allergy Unknown HIVES Uncoded 08/02/18 01:12 pencillin Allergy Unknown HIVES Uncoded 08/02/18 01:12 Past Medical History - heen HEENT History: Hard of Hearing Additional HEENT History: Wears bilateral hearing aids. Cardiovascular History: Hypertension, Previous NV, Hyperlipidemia Respiratory History: Asthma, COPD Gastrointestinal History: Gallbladder Disease, GI Bleed Additional Gastrointestinal History: ABD Hernia Genitourinary History: Denies History Endocrine History: Hypothyroidism Additional Endocrine History: S/P RADIATION TO THYROID Musculoskeletal History: Joint Pain Prosthesis or Implant: No Additional Musculoskeletal History: RIGHT HIP PAIN Neurological History: Denies History Blood Disorders: Denies History Psychiatric History: Denies History History of Sexually Transmitted Diseases: No Female Reproductive History: Denies History Obstetrical History: Denies History Cancer History: Breast, Colon In Past Year Been Physically Harmed or Verbally Threatened: No History of MDRO: No History of Other Communicable Diseases: No Tobacco Use: Former Smoker Alcohol Use: Rarely In the Past 12 Months, Have Used or Abuse Any Substance: None Previous Surgical History: Yes Type / Date of Surgery: MASTECTOMY, GALLBLADDER, ABDOMINAL HERNIA REPAIR X 3, STENTS Anesthesia Reactions: No Malignant Hyperthermia: No Significant Family History: No pertinent family hx ROS - Limitations ROS Limitations: No Limitations Constitution: REPORTS: Denies Symptoms Cardiovascular: REPORTS: Denies Cardiac Symptoms Respiratory: REPORTS: Denies Resp Symptoms Neurological: REPORTS: Denies Neuro Symptoms Gastrointestinal: REPORTS: Abdominal Pain, Nausea, Vomitting Endocrine: REPORTS: Denies Symptoms Musculoskeletal: REPORTS: Denies MS Symptoms Genitourinary: REPORTS: Denies Symptoms Eyes: REPORTS: Denies Symptoms ENT: REPORTS: Denies Symptoms Skin: REPORTS: Denies Skin Symptoms Lympathic: REPORTS: Denies Lympathic Symptoms Immunologic: POSITIVE: Denies Symptoms Psychiatric: POSITIVE: Denies Psych Symptoms Abdominal/Flank Pain PE - General Appearance General Appearance: POSITIVE: Alert, Cooperative, No Evidence of Trauma, Moderate Distress. NEGATIVE: No Acute Distress - HEENT HEENT: POSITIVE: Head Inspection Nml, Eyes Inspection Nml, Ears Inspection Nml, Nose Inspection Nml, Oral/Dental Inspect. Nml, Pharynx Inspect. Nml, PERRL, EOMI - Neck Neck: POSITIVE: Normal Inspection, No Apparent Injury - Respiratory Respiratory: POSITIVE: No Respiratory Distress, Breath Sounds Normal, Chest Non-Tender - Cardiovascular Cardiovascular: POSITIVE: Regular Rate and Rhythm Peripheral Pulses: Radial (R): 2+, Radial (L): 2+ - Chest Chest: NEGATIVE: Non Tender, Tender, Ecchymosis, Abrasion, Laceration, Other - Abdomen Abdomen: Soft: (LLQ), (LUQ), (RUQ), Denies Tenderness: (RLQ), No Splenomegaly: (All Quadrants), No Hepatomegaly: (All Quadrants), No Guarding: (All Quadrants), No Rebound: (All Quadrants), No Palpable Pulse: (All Quadrants), No Palpabale Ma ss: (RUQ), (LUQ), (LLQ), No Distention: (RUQ), (LUQ), (LLQ), Tenderness Noted: (RLQ), Hypoactive Bowel Sounds: (All Quadrants) Additional Abdominal Details: Abdominal examination shows bowel sounds to be somewhat depressed. Patient has a abdominal wall hernia chest below into the right of the umbilicus which is quite tender on palpation. Not readily reducible. No intra-abdominal masses, or organomegaly appreciated. - Back Back: POSITIVE: Normal Inspection. 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 Normal As Tested, Motor Normal, Sensation Normal - Psychological Psychiatric: POSITIVE: Affect Appropriate, Mood Appropriate Images - Complete Complete: 1 - Non-reducible hernia 2 - Reducible hernia Abdomen Progress - Results Reviewed by me Xrays/CTs/US Reviewed by me: Yes Discussed with Radiologist: Yes Radiology Findings: CT scan abdomen and pelvis with IV contrast shows "large complex ventral hernia containing appendix, transverse colon and multiple loops of dilated small bowel with wall thickening and fat stranding concerning for strangulation with upstream dilation of small bowel concerning for obstruction. " Lab Results Reviewed by Me: Yes CBC and BMP: 08/02/18 01:10 08/02/18 01:10 Lab Results:: Laboratory Results 08/02/18 08/02/18 08/02/18 01:10 01:10 02:15 WBC 11.8 H RBC 4.74 Hgb 13.4 Hct 39.3 MCV 83 MCH 28.3 MCHC 34.1 RDW Coeff of Lee 14.8 H Plt Count 308 MPV 7.7 Neutrophils % (Manual) 95 H Band Neutrophils % 0 Lymphocytes % (Manual) 2 L Monocytes % (Manual) 3 Eosinophils % (Manual) 0 Basophils % (Manual) 0 Metamyelocytes % 0 Myelocytes % 0 Promyelocytes % 0 Blast Cells 0 WBC Morphology Comment Normal morphology Plt Morphology Comment Normal morphology RBC Morph Comment Normal morphology Sodium 140 Potassium 3.6 L Chloride 98 Carbon Dioxide 25 Anion Gap 17 BUN 15 Creatinine 0.7 BUN/Creatinine Ratio 21.42 H Glucose 155 H Calculated Osmolality 293.0 H Calcium 9.5 Total Bilirubin 0.4 AST 31 ALT 26 Alkaline Phosphatase 84 Total Protein 8.1 H Albumin 4.7 Globulin 3.4 Albumin/Globulin Ratio 1.30 Amylase 108 Lipase 97 Ur Collection Type Clean catch urine Urine Color Yellow Urine Clarity Clear Urine pH 7.5 Ur Specific [place] 1.010 Urine Protein Negative Urine Glucose (UA) Negative Urine Ketones Trace A Urine Occult Blood Trace-intact H Urine Nitrate Negative Urine Bilirubin Negative Urine Urobilinogen 0.2 Ur Leukocyte Esterase Negative Ur Culture Indicated? Culture not set - Patient's Progress Pain Medication Addressed: POSITIVE: Yes (1 mg Dilaudid IV given with good pain relief) School/Work Release Addressed: POSITIVE: Not Applicable Re-examine Time: 02:30 Re-Examine Comment: Patient given a milligram of Dilaudid IV with marked red uction in the intensity of her pain. Patient also given a liter of normal saline and 4 mg of Zofran. On reevaluation patient's pain is much less, but she still has a hernia which is not reducible. Status: POSITIVE: Improved, Re-Examined - Consult Consult (If Yes, Name of Consulting MD & Time Called): Yes (Dr. Timmons, [id number]) Consulting MD will see pt:: POSITIVE: In ED Counseled: POSITIVE: Patient, Family (), RE: Lab Results, RE: Radiology Results, RE: DX, RE: Need for F/U Patient Care Time - Estimated PCT Patient Care Time (In Minutes): 60 Vital Signs - Recent Vital Signs Vital Signs: Vital Signs (Last 8 hours) Temp Pulse Resp BP Pulse Ox 08/02/18 01:12 97.4 F 116 H 22 130/118 91 - VS Reviewed Vital Signs Reviewed: Yes Discharge Clinical Impression: Abdominal pain, Incarcerated hernia Discharge Disposition: Other (Care transferred to Dr. Timmons, surgeon, will come to ER to further evaluate and treat) Condition: Stable Follow Up With: Myrna Savage [Primary Care Provider] - Care Transferred To: Dr. Timmons
--- NOTE | 2018-08-02 03:41 | PDOC ---
HPI - History of Present Illness Date of Service: 08/02/18 Time of Service: 03:37 Chief Complaint: Bowel obstruction History of Present Illness: This 78-year-old female who came in with abdominal pain. She also has nausea and vomiting. This started earlier this afternoon. Patient has a history of rectal cancer status post primary resection with loop ileostomy. She subsequently has had a takedown loop ileostomy. Patient's had a long-standing history of having incisional hernia with this. This never bothered until now. Patient workup included a CT scan which shows a large complex ventral hernia with evidence of strangulation. She has a bowel obstruction associated with this. Her pain was taken care with Dilaudid but the pain is now returning. Past Medical History Medical History: 1. Coronary artery disease status post stent in December 2015. 2. Hypertension. 3. Hypothyroidism, post-iodine therapy for an overactive thyroid at the time. 4. Breast cancer status post mastectomy. 5. 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 6. Head tremor. 7. Internal hemorrhoids. 8. Hypercholesteremia Surgical History: 1. Stent in December 2015. 2. Appendectomy and cholecystectomy. 3. Hernia operation and then subsequently the patient developed a mesh infection and now has had 3-4 surgeries, with a large abdominal wall surgical hernia. 4. Left mastectomy due to breast cancer. 5. Transurethral resection of latter cancer, probably transitional cell although I don't have any pathology reports of that. Pertinent Family History: Significant for COPD. Past Social History: History of smoking but no longer does. Has 4 biologic sons and 2 stepchildren, and one of her sons had a traumatic brain injury and lives with her. She is . Retired. Rarely drinks alcohol Tobacco Use: Former Smoker In the Past 12 Months, Have Used or Abuse Any of the Following Substance: None Medication / Allergies Home Medications: Home Medications Medication Instructions Recorded Confirmed Potassium Chloride [Klor-Con] 10 meq PO DAILY #4 tab 06/19/16 Ipratropium [place] 2.5 ml INH Q12H #0 07/07/16 08/02/18 acetaminophen 325 mg capsule 325 mg PO BID PRN cap 07/26/17 08/02/18 calcium carbonate 500 mg calcium 500 mg PO QDAY tab 07/26/17 08/02/18 (1,250 mg) tablet fluticasone propionate 50 1 spray INASL QDAY 07/26/17 08/02/18 mcg/actuation nasal spray,suspension potassium chloride ER 20 mEq 20 meq PO BID tab 07/26/17 08/02/18 tablet,extended release(part/cryst) simethicone 80 mg tablet 80 mg PO BID-QID PRN 07/26/17 08/02/18 aspirin 81 mg tablet,delayed 81 mg PO QDAY #0 tab 04/25/18 08/02/18 release atorvastatin 40 mg tablet 40 mg PO QDAY tab 04/25/18 08/02/18 levothyroxine 112 mcg tablet 112 mcg PO QDAY tab 04/25/18 08/02/18 metoprolol succinate ER 50 mg 50 mg PO QDAY tab 04/25/18 08/02/18 tablet,extended release 24 hr pantoprazole 40 mg tablet,delayed 40 mg PO QDAY tab 04/25/18 08/02/18 release calcium carbonate 500 mg calcium 500 mg PO QDAY #30 tab 05/04/18 08/02/18 (1,250 mg) tablet cholecalciferol (vitamin D3) 1,000 1,000 unit PO QDAY #30 tab 05/04/18 08/02/18 unit tablet budesonide-formoterol HFA 80 2 puff INH BID #120 inh 05/13/18 08/02/18 mcg-4.5 mcg/actuation aerosol inhaler amlodipine 10 mg tablet 10 mg PO QDAY #90 tab 06/09/18 08/02/18 Allergies/Adverse Reactions: Allergies Allergy/AdvReac Type Severity Reaction Status Date / Time tramadol Allergy Severe HALLUCINATI Verified 08/02/18 01:12 ONS chlorine Allergy Unknown HIVES Uncoded 08/02/18 01:12 pencillin Allergy Unknown HIVES Uncoded 08/02/18 01:12 Exam - Vitals Vital Signs: Vital Signs Temperature 97.4 F Pulse Rate [Pulse Oximeter] 106 Respiratory Rate 22 Blood Pressure [Right Arm] 127/66 Pulse Ox 91 Oxygen Delivery Method Room Air Height 5 ft Weight 127 lb - General General Appearance: No Acute Distress, Cooperative - Head Head Exam: Normal Inspection - Eye Eye Exam: POSITIVE: PERRL, EOMI - Neck Neck Exam: Full ROM, No Tenderness - Respiratory Respiratory Exam: POSITIVE: Clear to Auscultation - Bilaterally, Breathing Non Labored - Cardiovascular Cardiovascular Exam: POSITIVE: RRR, No Murmur, No Clicks - GI/Abdominal GI/Abdominal Exam: POSITIVE: Soft, Distended, No Hepatomegaly, No Splenomegaly - Rectal Rectal Exam: POSITIVE: Deferred - External Exam: POSITIVE: Deferred - Extremities Extremities Exam: POSITIVE: No Clubbing Present, No Edema Present, No Cyanosis Present - Neurological Neurological Exam: POSITIVE: Alert, Oriented x 3, CN II-XII Intact Results - Labs CBC and BMP: 08/02/18 01:10 08/02/18 01:10 Assessment and Plan - Patient Problems (1) Incarcerated hernia Current Visit: Yes Status: Acute Code(s): K46.0 - Unspecified abdominal hernia with obstruction, without gangrene - Assessment / Plan Additional Assessment/Plan Details: At this point I think the patient does need to go the OR. She has a chronically incarcerated hernia with evidence of string elation on CT scan and a bowel obstruction. Risks benefits were explained to her and her . She understands these I will take a surgery at the first available time.
[2018-08-02] MEDS ORDERED: Nasal Sanitizer POPSWAB ampule 3 AMP (Nozin) PREOP DOSE ENOS SCH (03:45)
[2018-08-02] MEDS ORDERED: Lactated Ringers 1,000 ML PRIMARY IV SCH (03:45)
[2018-08-02] MEDS ORDERED: fentaNYL Inj 250 MCG/5 ML VIAL ONE ×2 (04:00→05:08)
[2018-08-02] MEDS ORDERED: Lactated Ringers 1,000 ML PRIMARY IV ONE ×2 (04:00→05:08)
[2018-08-02] MEDS ORDERED: PROPOFOL 10 MG/1 ML (200 MG/20 ML) VIAL IV ONE (04:00)
[2018-08-02] MEDS ORDERED: MIDAZOLAM 5 MG/1 ML ONE (04:01)
[2018-08-02] MEDS ORDERED: LIDOCAINE MPF 2% - 5 ML (20 MG/1 ML) ONE (04:03)
[2018-08-02] MEDS ORDERED: ROCURONIUM 10 MG/1 ML - 5 ML VIAL IVP ONE ×2 (04:04→05:25)
[2018-08-02] MEDS ORDERED: KETAMINE HCL 100 MG/2 ML SYRINGE IV ONE (04:07)
[2018-08-02] MEDS ORDERED: Sodium Chloride 0.9% 100 ML IV ONE (04:19)
[2018-08-02] MEDS ORDERED: ePHEDrine Inj 50 MG/ML AMP ONE (04:38)
[2018-08-02] MEDS ORDERED: CefOXitin Inj 2 GM in Sodium Chloride 0.9% 100 ML IV ONE (05:13)
[2018-08-02] MEDS ORDERED: SUFENTANIL 50 MCG/1 ML ONE (05:23)
[2018-08-02] MEDS ORDERED: SUGAMMADEX SODIUM 200 MG/2 ML VIAL IV ONE (05:51)
[2018-08-02] MEDS ORDERED: Sodium Chloride 0.9% vial 40 ML ONE (05:51)
[2018-08-02] MEDS ORDERED: BUPivacaine Liposome/PF (Exparel) Inj 20ml vial INFIL ONE (05:52)
[2018-08-02] MEDS ORDERED: Nalbuphine Inj 20 MG/ML Ampule ONE (06:16)
--- NOTE | 2018-08-02 06:23 | GEN.OPNOTE ---
Operative Note Surgery Date: 08/02/18 Preoperative Diagnosis: Incarcerated incisional hernia with possible strangulation Postoperative Diagnosis: Strangulated and eventual hernia Procedure: Lysis of adhesions and repair of a ventral hernia and omentectomy Surgeon: Adam Roman MD Anesthesia Provider: Denny Lorenzo CRNA Anesthesia Type: General Estimated Blood Loss (mL): 20 Fluids: Lactated Ringer Ringer's please see anesthesia notes in EMR for exact dosing. 2 g of Mefoxin Pathology: Nothing sent Indications: 78-year-old female comes in with acute abdominal pain. CT scan showed a incarcerated ventral hernia with possible strangulation Findings: Patient had an internal hernia secondary to omentum being up in the hernia sac with bowel. The small bowel was dusky but viable. After freeing up the adhesions the bowel pinked up and appeared to be viable no evidence of ischemia. Patient did have a tongue of omentum that when down in the pelvis. After freeing up all the adhesions and taken down the internal hernia this portion of the omentum was devascularize therefore had to be removed Complications: None Operative Summary: Patient is brought in operative room placed in supine position. Given general trach anesthesia. Subramanian catheter and nasogastric tube was placed. Patient was prepped draped sterile fashion. Timeout performed per protocols. I excised the patient's previous scar. She did have a small stitch abscess in the inferior aspect of this incision this was completely excised. After excising the scar completely and in the hernia sac. Patient had of bowel within the hernia and omentum. There is a defect within the omentum that allow the bowel to herniate through that defect. This did cause the obstruction. He is electrocautery and Metzenbaums mom scissors I took down all the adhesions from the omentum to the abdominal wall. I also took down the adhesions of the small bowel to the hernia sac. Patient had a tongue of the omentum that when down in the pelvis this was sharply and bluntly dissected out of the pelvis. I did have to remove this portion of the omentum because it was devascularized. The bowel was dusky but once I freed up all the adhesions the bowel pinked up. I ran the small bowel from the ligament of Treitz to the terminal ileum. Anastomosis from her takedown ileostomy was patent. Patient did have her appendix despite having an appendectomy in her past medical history. The colon appeared be viable and pink. Did not find any masses. Palpated the liver there is no masses. At this point we worked on freshen up the fascial edges. I also removed the entire hernia sac with electrocautery. I closed the fascia with #1 PDS continuous running suture. Placed a 7 Gregory-Pugh drain brought out from inferior aspect of the incision. Infiltrative Exoprel 20 mL diluted out to 60 mL for total solution of 80 mL . Closed the skin with skin francis. Patient tolerated procedure well the were no complications. Transferred recovery room stable condition. Counts were correct. Patient Problems - Patient Problem List (1) Incarcerated hernia Current Visit: Yes Status: Acute Code(s): K46.0 - Unspecified abdominal hernia with obstruction, without gangrene Category: Medical Procedure Codes - Surgical Procedures Primary Surgical Procedure: 57817 : Enterolysis
[2018-08-02] MEDS ORDERED: LIDOCAINE W/ SODIUM BICARB 0.5 ML SYR SUBD PRN (06:27)
--- NOTE | 2018-08-02 06:30 | CRNA.PROGR ---
Anesthesia Recovery Phase I - Post Anesthesia Evaluation Patient's Condition on Arrival in Phase I: Stable Pain Level: 1
--- NOTE | 2018-08-02 06:36 | CRNA.PROGR ---
Anesthesia Time - Procedure/Recovery Time Start Date: 08/02/18 End Date: 08/02/18 Anesthesia : Time In: 04:21 Anesthesia : Time Out: 06:23 Anesthesia : Total Time: 122 - Total Anesthesia Time Total Anesthesia Time (minutes): 122 - Other Weight: 57.606 kg Height: 5 ft Body Mass Index (BMI): 24.7 Physical Status: P3 Anesthesia Type: General Anesthesia : ET
[2018-08-02] MEDS ORDERED: HYDROmorphone 2 MG/1 ML ONE ×3 (06:39→07:17)
[2018-08-02] MEDS: HYDROmorphone 2 MG/1 ML IVP PRN ×8 (06:42→07:25)
[2018-08-02] MEDS: KETOROLAC 15 MG/1 ML VIAL IVP PRN ×2 (09:31→19:47)
[2018-08-02] MEDS: MORPHINE SULFATE 2 MG/1 ML IVP PRN ×2 (09:31→23:18)
[2018-08-02] MEDS: Acetaminophen 1000mg Inj 1,000 MG/100 ML VIAL IV PRN ×2 (09:32→17:46)
[2018-08-02] MEDS: FAMOTIDINE 20 MG/2 ML VIAL IVP SCH ×2 (09:40→20:48)
[2018-08-02] MEDS: D5-1/2NS + 20mEq KCL 1,000 ML PRIMARY IV SCH ×2 (09:41→23:16)
--- NOTE | 2018-08-02 10:43 | CONSULT ---
Consult Note - Consult Reason for Consult: PostOp Consulation : General Surgery Requesting Physician: Dr. farhad Brooke for hypertension Primary Care Provider: Myrna Savage MD - History of Present Illness History of Present Illness: This very nice 78-year-old female who is status post the inguinal hernia incarceration repair she is doing well postop as an NG tube has no complaints denies chest pain nausea vomiting Past Medical History Medical History: 1. Coronary artery disease status post stent in December 2015. 2. Hypertension. 3. Hypothyroidism, post-iodine therapy for an overactive thyroid at the time. 4. Breast cancer status post mastectomy. 5. 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 6. Head tremor. 7. Internal hemorrhoids. 8. Hypercholesteremia Surgical History: 1. Stent in December 2015. 2. Appendectomy and cholecystectomy. 3. Hernia operation and then subsequently the patient developed a mesh infection and now has had 3-4 surgeries, with a large abdominal wall surgical hernia. 4. Left mastectomy due to breast cancer. 5. Transurethral resection of latter cancer, probably transitional cell although I don't have any pathology reports of that. Pertinent Family History: Significant for COPD. Past Social History: History of smoking but no longer does. Has 4 biologic sons and 2 stepchildren, and one of her sons had a traumatic brain injury and lives with her. She is . Retired. Rarely drinks alcohol Tobacco Use: Former Smoker In the Past 12 Months, Have Used or Abuse Any of the Following Substance: None Medication / Allergies Home Medications: Home Medications Medication Instructions Recorded Confirmed Potassium Chloride [Klor-Con] 10 meq PO DAILY #4 tab 06/19/16 acetaminophen 325 mg capsule 325 mg PO BID PRN cap 07/26/17 08/02/18 calcium carbonate 500 mg calcium 500 mg PO QDAY tab 07/26/17 08/02/18 (1,250 mg) tablet simethicone 80 mg tablet 80 mg PO BID-QID PRN 07/26/17 08/02/18 aspirin 81 mg tablet,delayed 81 mg PO QDAY #0 tab 04/25/18 08/02/18 release atorvastatin 40 mg tablet 40 mg PO QDAY tab 04/25/18 08/02/18 levothyroxine 112 mcg tablet 112 mcg PO QDAY tab 04/25/18 08/02/18 metoprolol succinate ER 50 mg 50 mg PO QDAY tab 04/25/18 08/02/18 tablet,extended release 24 hr pantoprazole 40 mg tablet,delayed 40 mg PO QDAY tab 04/25/18 08/02/18 release calcium carbonate 500 mg calcium 500 mg PO QDAY #30 tab 05/04/18 08/02/18 (1,250 mg) tablet cholecalciferol (vitamin D3) 1,000 1,000 unit PO QDAY #30 tab 05/04/18 08/02/18 unit tablet budesonide-formoterol HFA 80 2 puff INH BID #120 inh 05/13/18 08/02/18 mcg-4.5 mcg/actuation aerosol inhaler amlodipine 10 mg tablet 10 mg PO QDAY #90 tab 06/09/18 08/02/18 Allergies/Adverse Reactions: Allergies Allergy/AdvReac Type Severity Reaction Status Date / Time tramadol Allergy Severe HALLUCINATI Verified 08/02/18 01:12 ONS chlorine Allergy Unknown HIVES Uncoded 08/02/18 01:12 pencillin Allergy Unknown HIVES Uncoded 08/02/18 01:12 Exam - Vitals Vital Signs: Vital Signs Temperature 97.8 F Temperature Source Oral Pulse Rate [Pulse Oximeter] 91 Pulse Rate 93 Respiratory Rate 20 Blood Pressure [Right Arm] 109/66 Blood Pressure 130/91 Pulse Ox 91 Oxygen Flow Rate 2 Oxygen Delivery Method Nasal Cannula Height 5 ft Weight 127 lb - General General Appearance: No Acute Distress, Cooperative - Respiratory Respiratory Exam: POSITIVE: Clear to Auscultation - Bilaterally, Breathing Non Labored, Normal To Percussion, Normal to Percussion and Palpation - Cardiovascular Cardiovascular Exam: POSITIVE: RRR, No Murmur, No Clicks, No Gallops, No Rubs, PMI Non-Displaced - GI/Abdominal GI/Abdominal Exam: POSITIVE: Normal Bowel Sounds, Non Tender, Non Distended, Soft, No Masses, No Hepatomegaly, No Splenomegaly, No Organomegaly - Extremities Extremities Exam: POSITIVE: No Clubbing Present, No Edema Present, No Cyanosis Present - Neurological Neurological Exam: POSITIVE: Alert, Oriented x 3, No Facial Droop Results - Labs CBC and BMP: 08/02/18 01:10 08/02/18 01:10 Assessment and Plan - Patient Problems (1) Incarcerated hernia Current Visit: Yes Status: Acute Comment: Status post surgery for Dr. farhad Brooke Code(s): K46.0 - Unspecified abdominal hernia with obstruction, without gangrene (2) Acquired hypothyroidism Current Visit: No Status: Chronic Onset Date: 07/07/16 Comment: Continue replacement Code(s): E03.9 - Hypothyroidism, unspecified (3) Chronic obstructive pulmonary disease Current Visit: No Status: Chronic Onset Date: 07/07/16 Comment: Stable continue current meds Code(s): J44.9 - Chronic obstructive pulmonary disease, unspecified Qualifiers: COPD type: unspecified COPD Qualified Code(s): J44.9 - Chronic obstructive pulmonary disease, unspecified (4) Hypertension Current Visit: No Status: Chronic Comment: Stable at present time Code(s): I10 - Essential (primary) hypertension Qualifiers: Hypertension type: essential hypertension Qualified Code(s): I10 - Essential (primary) hypertension (5) Hypokalemia Current Visit: Yes Status: Acute Comment: Replace with IV fluids Code(s): E87.6 - Hypokalemia
[2018-08-02] MEDS ORDERED: CALCIUM CARBONATE 500 MG PO SCH (10:45)
[2018-08-02] MEDS ORDERED: CALCIUM CARBONATE 500 MG (TUMS) CHEWABLE TABLET PO SCH (12:15)
[2018-08-02] MEDS: CHOLECALCIFEROL 1000 IU TABLET PO SCH (12:25)
[2018-08-02] MEDS: METOPROLOL SUCCINATE 50 MG SR 24H TABLET PO SCH (12:25)
[2018-08-02] MEDS: PANTOPRAZOLE 40 MG TABLET PO SCH (12:31)
[2018-08-02] MEDS: LEVOTHYROXINE 112 MCG TABLET PO SCH (12:31)
[2018-08-02] MEDS: ONDANSETRON 4 MG/2 ML VIAL IVP PRN ×2 (13:59→23:27)
[2018-08-02] MEDS ORDERED: CALCIUM CARBONATE 500 MG (TUMS) CHEWABLE TABLET PO PRN (16:44)
[2018-08-02] MEDS: SIMETHICONE 80 MG TABLET PO PRN (19:48)
[2018-08-02] MEDS ORDERED: IPRATROPIUM BROMIDE 0.5 mg/2.5 ML NEB ONE (20:12)
[2018-08-02] MEDS: IPRATROPIUM BROMIDE 0.5 mg/2.5 ML NEB SCH (20:22)
[2018-08-02] MEDS: ATORVASTATIN 40 MG TABLET PO SCH (20:49)
[2018-08-02] MEDS: FORMOTEROL FUMARATE INH SCH (21:03)
[2018-08-02] MEDS: BUDESONIDE INH SCH (21:03)
[2018-08-03] MEDS: KETOROLAC 15 MG/1 ML VIAL IVP PRN ×3 (04:00→21:14)
[2018-08-03 05:16] LABS: BASOPHILS # (AUTO) 0.02 10*3/UL; BASOPHILS % (AUTO) 0.2 % (0-1); EOSINOPHILS # (AUTO) 0.44 10*3/UL; EOSINOPHILS % (AUTO) 4.3 % (0-8); Hematocrit [HCT] 33.9 % (37.0-47.0); Hemoglobin [HGB] 10.8 g/dL (12.0-16.0); LYMPHOCYTES # (AUTO) 0.55 10*3/uL; MEAN CORPUSCULAR HEMOGLOBIN 27.3 PG (27-31); MEAN CORPUSCULAR HGB CONC 31.9 g/dL (33-37); MEAN CORPUSCULAR VOLUME 85.8 FL (81-99); MEAN PLATELET VOLUME 9.9 FL (7.4-12.2); MONOCYTES # (AUTO) 0.89 10*3/UL (0.3-0.8); MONOCYTES % (AUTO) 8.8 % (5-15); NEUTROPHILS # (AUTO) 8.23 10*3/UL; NEUTROPHILS % (AUTO) 81.2 % (50-80); RED BLOOD COUNT 3.95 10^6/uL (4.20-5.40)
[2018-08-03 05:34] LABS: BLOOD UREA NITROGEN 14 mg/dL (7-22); BUN/CREATININE RATIO 23.33 (6-20)
[2018-08-03] MEDS: LEVOTHYROXINE 112 MCG TABLET PO SCH (05:46)
[2018-08-03 05:56] LABS: PLATELET MORPHOLOGY COMMENT NORMAL MORPHOLOGY (NORM); RBC MORPHOLOGY COMMENT NORMAL MORPHOLOGY (NORM); WBC MORPHOLOGY COMMENT NORMAL MORPHOLOGY (NORM)
[2018-08-03] MEDS: BUDESONIDE INH SCH ×2 (06:53→18:49)
[2018-08-03] MEDS: IPRATROPIUM BROMIDE 0.5 mg/2.5 ML NEB SCH ×4 (06:53→18:48)
[2018-08-03] MEDS: FORMOTEROL FUMARATE INH SCH ×2 (06:53→18:49)
[2018-08-03] MEDS: FAMOTIDINE 20 MG/2 ML VIAL IVP SCH ×2 (08:29→20:03)
[2018-08-03] MEDS: METOPROLOL SUCCINATE 50 MG SR 24H TABLET PO SCH (08:29)
[2018-08-03] MEDS: CHOLECALCIFEROL 1000 IU TABLET PO SCH (08:29)
[2018-08-03] MEDS: PANTOPRAZOLE 40 MG TABLET PO SCH (08:29)
[2018-08-03] MEDS: Acetaminophen 1000mg Inj 1,000 MG/100 ML VIAL IV PRN ×2 (08:31→17:17)
--- NOTE | 2018-08-03 09:17 | CRNA.PROGR ---
Anesthesia Note - Progress Notes Anesthesia Progress Note: Lying in bed on her side. Biggest complaint is gas pain. She states incisional pain is tolerable and that the pain medication she's getting is doing its job. NG tube still in and to low wall suction. States she felt better immediately post op than today. She states anything is better than the pain she had prior to surgery. Laboratory Results 08/03/18 08/03/18 05:00 05:00 WBC 10.14 RBC 3.95 L Hgb 10.8 L Hct 33.9 L MCV 85.8 MCH 27.3 MCHC 31.9 L RDW Std Deviation 45.3 RDW Coeff of Lee 14.9 H Plt Count 252 MPV 9.9 Immature Gran % (Auto) 0.1 Neut % (Auto) 81.2 H Lymph % (Auto) 5.4 L [place] % (Auto) 8.8 Eos % (Auto) 4.3 Baso % (Auto) 0.2 Immature Gran # (Auto) 0.01 Neut # (Auto) 8.23 Lymph # (Auto) 0.55 [place] # (Auto) 0.89 H Eos # (Auto) 0.44 Baso # (Auto) 0.02 WBC Morphology Comment Normal morphology Plt Morphology Comment Normal morphology RBC Morph Comment Normal morphology Sodium 137 Potassium 4.5 Chloride 103 Carbon Dioxide 25 Anion Gap 9 BUN 14 Creatinine 0.6 BUN/Creatinine Ratio 23.33 H Glucose 97 Calculated Osmolality 284.0 Calcium 8.4 L Vital Signs - Last Taken Temperature 97.1 F 08/03/18 07:20 Pulse Rate 81 08/03/18 07:20 Respiratory Rate 20 08/03/18 07:20 Blood Pressure 110/60 08/03/18 07:20 Pulse Ox 91 08/03/18 07:20 No apparent anesthetic difficulties.
--- NOTE | 2018-08-03 09:51 | PDOC(PROG) ---
Subjective Post Op Day: postop day 1 Pain Management: IV Tylenol Toradol Subramanian Catheter: Yes Flatus: Yes Diet: NPO Ambulating: Yes Date of Service: 08/03/18 Time of Service: 09:50 Interval History: Patient states that she's having a lot of gas pain. But her pain is in the midline settings incisional. Since be taken care of with pain medication. Objective : Data - Labs CBC and BMP: 08/03/18 05:00 08/03/18 05:00 - Vital Signs Vital Signs and I&O: Vital Signs - Last Taken Temperature 97.1 F 08/03/18 07:20 Pulse Rate 81 08/03/18 07:20 Respiratory Rate 20 08/03/18 07:20 Blood Pressure 110/60 08/03/18 07:20 Pulse Ox 91 08/03/18 07:20 Intake and Output (24hr x 4 totals) 08/01/18 08/02/18 08/03/18 08/04/18 05:59 05:59 05:59 05:59 Intake Total 975 / 975 3365 / 3365 Output Total 845 / 845 Balance 975 / 975 2520 / 2520 Objective : Exam - General General Appearance: No Acute Distress, Cooperative - Respiratory Respiratory Exam: Clear to Auscultation - Bilaterally - GI/Abdominal GI/Abdominal Exam: Normal Bowel Sounds, Non Tender, Non Distended Assessment and Plan - Patient Problems (1) Incarcerated hernia Current Visit: Yes Status: Acute Code(s): K46.0 - Unspecified abdominal hernia with obstruction, without gangrene - Assessment / Plan Additional Assessment/Plan Details: Patient postop day 1 from having an incarcerated incisional hernia with a bowel obstruction. She is a 30 passing gas. I will DC the NG tube and start liquid diet. Intraoperative Subramanian removed. Is tolerating diet will switch her oral pain medicine.
[2018-08-03] MEDS: D5-1/2NS + 20mEq KCL 1,000 ML PRIMARY IV SCH ×2 (09:55→21:15)
--- NOTE | 2018-08-03 10:29 | PDOC(PROG) ---
Interval History: No chest pain nausea or vomiting patient did pass some gas her Subramanian is removed Objective : Data - Labs CBC and BMP: 08/03/18 05:00 08/03/18 05:00 Objective : Exam - General General Appearance: Cooperative - Respiratory Respiratory Exam: Clear to Auscultation - Bilaterally, Breathing Non Labored, Normal To Percussion, Normal to Percussion and Palpation - Cardiovascular Cardiovascular Exam: RRR, No Murmur, No Clicks, No Gallops, No Rubs, PMI Non- Displaced - GI/Abdominal GI/Abdominal Exam: Normal Bowel Sounds, Non Tender, Non Distended, Soft, No Masses, No Hepatomegaly, No Splenomegaly, No Organomegaly Assessment and Plan - Patient Problems (1) Incarcerated hernia Current Visit: Yes Status: Acute Comment: Postop day 14 L removed passing gas NG tube was removed by Dr. farhad Brooke Code(s): K46.0 - Unspecified abdominal hernia with obstruction, without gangrene (2) Acquired hypothyroidism Current Visit: No Status: Chronic Onset Date: 07/07/16 Comment: Stable Code(s): E03.9 - Hypothyroidism, unspecified (3) Chronic obstructive pulmonary disease Current Visit: No Status: Chronic Onset Date: 07/07/16 Comment: Stable continue home meds Code(s): J44.9 - Chronic obstructive pulmonary disease, unspecified Qualifiers: COPD type: unspecified COPD Qualified Code(s): J44.9 - Chronic obstructive pulmonary disease, unspecified (4) Hypertension Current Visit: No Status: Chronic Comment: Stable Code(s): I10 - Essential (primary) hypertension Qualifiers: Hypertension type: essential hypertension Qualified Code(s): I10 - Essential (primary) hypertension (5) Hypokalemia Current Visit: Yes Status: Acute Comment: Replaced Code(s): E87.6 - Hypokalemia
[2018-08-03] MEDS: MORPHINE SULFATE 2 MG/1 ML IVP PRN (11:38)
[2018-08-03] MEDS: ONDANSETRON 4 MG/2 ML VIAL IVP PRN ×2 (11:59→23:32)
[2018-08-03] MEDS: ATORVASTATIN 40 MG TABLET PO SCH (20:03)
[2018-08-04] MEDS: Acetaminophen 1000mg Inj 1,000 MG/100 ML VIAL IV PRN ×2 (00:26→08:25)
[2018-08-04] MEDS: LEVOTHYROXINE 112 MCG TABLET PO SCH (04:47)
[2018-08-04] MEDS: KETOROLAC 15 MG/1 ML VIAL IVP PRN (04:47)
[2018-08-04 05:21] LABS: BASOPHILS # (AUTO) 0.02 10*3/UL; BASOPHILS % (AUTO) 0.2 % (0-1); EOSINOPHILS # (AUTO) 0.55 10*3/UL; EOSINOPHILS % (AUTO) 6.2 % (0-8); Hematocrit [HCT] 32.8 % (37.0-47.0); Hemoglobin [HGB] 10.2 g/dL (12.0-16.0); LYMPHOCYTES # (AUTO) 0.87 10*3/uL; MEAN CORPUSCULAR HEMOGLOBIN 27.1 PG (27-31); MEAN CORPUSCULAR HGB CONC 31.1 g/dL (33-37); MEAN CORPUSCULAR VOLUME 87.2 FL (81-99); MEAN PLATELET VOLUME 9.4 FL (7.4-12.2); MONOCYTES # (AUTO) 0.72 10*3/UL (0.3-0.8); MONOCYTES % (AUTO) 8.2 % (5-15); NEUTROPHILS # (AUTO) 6.65 10*3/UL; NEUTROPHILS % (AUTO) 75.4 % (50-80); RED BLOOD COUNT 3.76 10^6/uL (4.20-5.40)
[2018-08-04 05:23] LABS: PLATELET MORPHOLOGY COMMENT NORMAL MORPHOLOGY (NORM); RBC MORPHOLOGY COMMENT NORMAL MORPHOLOGY (NORM); WBC MORPHOLOGY COMMENT NORMAL MORPHOLOGY (NORM)
[2018-08-04 05:39] LABS: BLOOD UREA NITROGEN 9 mg/dL (7-22); SERUM ALBUMIN 2.8 g/dL (3.5-4.8)
[2018-08-04] MEDS: BUDESONIDE INH SCH ×2 (06:39→19:43)
[2018-08-04] MEDS: FORMOTEROL FUMARATE INH SCH ×2 (06:39→19:43)
[2018-08-04] MEDS: PANTOPRAZOLE 40 MG TABLET PO SCH (06:59)
[2018-08-04] MEDS: IPRATROPIUM BROMIDE 0.5 mg/2.5 ML NEB SCH ×4 (07:05→19:42)
[2018-08-04] MEDS: ONDANSETRON 4 MG/2 ML VIAL IVP PRN (07:19)
[2018-08-04] MEDS: MORPHINE SULFATE 2 MG/1 ML IVP PRN (07:29)
[2018-08-04] MEDS: METOPROLOL SUCCINATE 50 MG SR 24H TABLET PO SCH (09:18)
[2018-08-04] MEDS: CHOLECALCIFEROL 1000 IU TABLET PO SCH (09:18)
[2018-08-04] MEDS: FAMOTIDINE 20 MG/2 ML VIAL IVP SCH (09:18)
[2018-08-04] MEDS ORDERED: LORazepam 2 MG/1 ML VIAL IVP ONE (09:31)
[2018-08-04] MEDS ORDERED: Ondansetron ODT Tab 4 MG TAB PO PRN (11:34)
[2018-08-04] MEDS ORDERED: oxyCODONE IR Tab 5 MG TAB PO PRN (11:36)
--- NOTE | 2018-08-04 12:34 | PDOC(PROG) ---
Interval History: Patient is very uncomfortable this morning no BM yet but did pass gas her anxiety level was pretty high. Chest pain nausea vomiting Objective : Data - Labs CBC and BMP: 08/04/18 05:00 08/04/18 05:00 Objective : Exam - General General Appearance: Cooperative, Mild Distress - Respiratory Respiratory Exam: Clear to Auscultation - Bilaterally, Breathing Non Labored, N ormal To Percussion, Normal to Percussion and Palpation - Cardiovascular Cardiovascular Exam: RRR, No Murmur, No Clicks, No Gallops, No Rubs, PMI Non- Displaced - GI/Abdominal Additional GI/Abdominal Exam Details: Going a rebound generalized pain postop mild bowel sounds - Extremities Extremities Exam: No Clubbing Present, No Edema Present, No Cyanosis Present Assessment and Plan - Patient Problems (1) Incarcerated hernia Current Visit: Yes Status: Acute Comment: Postop day #[address] farhad Brooke no bowel movement yet but is passing gas anus controlled Code(s): K46.0 - Unspecified abdominal hernia with obstruction, without gangrene (2) Acquired hypothyroidism Current Visit: No Status: Chronic Onset Date: 07/07/16 Code(s): E03.9 - Hypothyroidism, unspecified (3) Chronic obstructive pulmonary disease Current Visit: No Status: Chronic Onset Date: 07/07/16 Comment: Stable Code(s): J44.9 - Chronic obstructive pulmonary disease, unspecified Qualifiers: COPD type: unspecified COPD Qualified Code(s): J44.9 - Chronic obstructive pulmonary disease, unspecified (4) Hypertension Current Visit: No Status: Chronic Comment: Stable Code(s): I10 - Essential (primary) hypertension Qualifiers: Hypertension type: essential hypertension Qualified Code(s): I10 - Essential (primary) hypertension (5) Hypokalemia Current Visit: Yes Status: Acute Comment: Replaced Code(s): E87.6 - Hypokalemia (6) Anxiety Current Visit: Yes Status: Acute Comment: We'll give 1 mg of Ativan IV Code(s): F41.9 - Anxiety disorder, unspecified
--- NOTE | 2018-08-04 12:46 | PDOC(PROG) ---
Subjective Post Op Day: postop day 2 Pain Management: IV morphine, Toradol, Tylenol Subramanian Catheter: No Flatus: Yes Diet: full liquid Date of Service: 08/04/18 Time of Service: 12:45 Interval History: Patient states that she is a 7 worse during her stay. She is more agitated today. She says she is having more abdominal pain. Passing flatus but no bowel movement. Objective : Data - Labs CBC and BMP: 08/04/18 05:00 08/04/18 05:00 - Vital Signs Vital Signs and I&O: Vital Signs - Last Taken Temperature 97.8 F 08/04/18 11:08 Pulse Rate 72 08/04/18 11:08 Respiratory Rate 17 08/04/18 11:08 Blood Pressure 108/59 08/04/18 11:08 Pulse Ox 100 08/04/18 11:08 Intake and Output (24hr x 4 totals) 08/02/18 08/03/18 08/04/18 08/05/18 05:59 05:59 05:59 05:59 Intake Total 975 / 975 3365 / 3365 1614 / 1614 200 / 200 Output Total 845 / 845 1380 / 1380 250 / 250 Balance 975 / 975 2520 / 2520 234 / 234 -50 / -50 Objective : Exam - GI/Abdominal GI/Abdominal Exam: Normal Bowel Sounds, Non Distended Assessment and Plan - Patient Problems (1) Incarcerated hernia Current Visit: Yes Status: Acute Code(s): K46.0 - Unspecified abdominal hernia with obstruction, without gangrene - Assessment / Plan Additional Assessment/Plan Details: Overall think the patient is doing very well. She has incisional pain. We'll give her does note Magnesia today hopefully get her bowels started. Patient did tell me prior to going to surgery that she became agitated disorientated after previous surgeries. She required Haldol to stay mentally alert.
[2018-08-04] MEDS: MAGNESIUM 400 MG/5 ML - 30 ML (MILK OF MAGNESIA) PO SCH ×2 (16:53→20:24)
[2018-08-04] MEDS: ATORVASTATIN 40 MG TABLET PO SCH (21:03)
[2018-08-04] MEDS: HYDROcodone-APAP 5 MG -325 MG TABLET PO PRN (21:08)
[2018-08-05] MEDS: HYDROcodone-APAP 5 MG -325 MG TABLET PO PRN ×3 (03:10→16:37)
[2018-08-05] MEDS: LEVOTHYROXINE 112 MCG TABLET PO SCH (04:38)
[2018-08-05] MEDS: FORMOTEROL FUMARATE INH SCH (06:09)
[2018-08-05] MEDS: BUDESONIDE INH SCH (06:09)
[2018-08-05] MEDS: IPRATROPIUM BROMIDE 0.5 mg/2.5 ML NEB SCH ×2 (06:11→16:02)
--- NOTE | 2018-08-05 07:50 | DCSUMMARY ---
Discharge Summary Admit Date: 08/02/18 Discharge Date: 08/05/18 Admitting Diagnosis: small bowel obstruction Discharge Diagnosis: Small bowel obstruction secondary to an incarcerated incisional hernia. COPD Primary Surgery and Date: 08/02/2018 had an exploratory laparotomy repair of an internal hernia and closure of his ventral hernia Hospital Course: Patient is admitted went under gone emergency surgery. Patient had incarcerated hernia causing bowel obstruction. I reduced the hernia remove the offending omentum. Patient was then primary close. Patient is doing very well postoperatively. She had a little delirium on the second postoperative day this cleared. Patient was able to tolerate diet started having bowel movements and second postoperative day. Postop day she is ready to be discharged home. The ERA drain was removed prior to being discharged. Condition on discharge was stable. Exam - Vitals Vital Signs: Vital Signs Temperature 97.3 F Temperature Source Temporal Artery Scan Pulse Rate [Pulse Oximeter] 63 Pulse Rate 85 Respiratory Rate 20 Blood Pressure [Right Arm] 125/68 Blood Pressure 130/91 Pulse Ox 95 Oxygen Flow Rate 2.5 Oxygen Delivery Method Nasal Cannula Height 5 ft Weight 130 lb 3.2 oz Patient Problems - Patient Problem List (1) Incarcerated hernia Current Visit: Yes Status: Acute Code(s): K46.0 - Unspecified abdominal hernia with obstruction, without gangrene Category: Medical
[2018-08-05] MEDS: SIMETHICONE 80 MG TABLET PO PRN ×2 (08:51→16:41)
[2018-08-05] MEDS: CHOLECALCIFEROL 1000 IU TABLET PO SCH (08:51)
[2018-08-05] MEDS: MAGNESIUM 400 MG/5 ML - 30 ML (MILK OF MAGNESIA) PO SCH ×3 (08:51→16:37)
[2018-08-05] MEDS: PANTOPRAZOLE 40 MG TABLET PO SCH (08:52)
[2018-08-05] MEDS: METOPROLOL SUCCINATE 50 MG SR 24H TABLET PO SCH (08:52)
[2018-08-05] MEDS ORDERED: FAMOTIDINE 20 MG TABLET PO SCH (09:00)
[2018-08-05] MEDS: KETOROLAC 15 MG/1 ML VIAL IVP PRN (11:31)
[2018-08-05 16:21] VITALS: BP 124/76; RESP 20; TEMP 97.8; O2SAT 93
== END 2018-08-05 17:30 | disposition home or self-care (01) | DRG 355 ==
LOC: ER 00:52 → OPS 03:35 → MED/SURG 07:41
PROVIDERS: ADMIT Surgery; ATTEND Surgery